=== PATIENT | male | born 1955 | race Asian ===

== ENCOUNTER 2016-05-22 13:42 | Emergency (ER) | payer OTHER ==
[~2016-05-22] VITALS: Ht 165.1 cm; Wt 91.2 kg
[~2016-05-22 13:42] MED LIST: ALLO100T PO; AMLO-147 PO; ASPI81TA3 PO; ATEN-51 PO; BACL10TA PO; BENA20TA48 PO; CIPR500T4 PO; DICY10CA60 PO; HYDR-762 PO; METR500T PO; ONDA4TAB35 PO; SIMV10TA PO
[2016-05-22 13:55] VITALS: Ht 165.1 cm; Wt 91.2 kg
--- NOTE | 2016-05-22 15:59 | RADRPT ---
PROCEDURE: XR Left Forearm. CLINICAL INDICATION: Trauma. Left forearm pain. TECHNIQUE: AP and lateral views of the left forearm were obtained. COMPARISON: No prior studies are available for comparison. FINDINGS: There is no fracture or dislocation. There is medial soft tissue injury. Articular surfaces are intact. There is no lytic or blastic lesion. There is no radiopaque foreign body. IMPRESSION: 1. Medial soft tissue injury. 2. Otherwise unremarkable images of the left forearm. RPTAT: QQ .Yoni Palumbo MD, MD Date Time Electronically viewed and signed by .Yoni Palumbo MD, on 05/22/2016 15:59 .R/
[2016-05-22] MEDS ORDERED: LIDOCAINE 1% (MDV) 20 ML INJ SC ONE (16:00)
[2016-05-22] MEDS ORDERED: LIDOCAINE 1%/EPI 30 ML INJ INJ STA (16:05)
[2016-05-22] MEDS ORDERED: HYDR-906 PO (16:39)
[2016-05-22] MEDS ORDERED: CEPH-443 PO (16:39)
[2016-05-22] MEDS ORDERED: DIPHTH/TET/ACEL PERTUSS (ADULT) 0.5 ML VIAL IM* ONE (17:00)
[2016-05-22 17:14] VITALS: BP 134/75; PULSE 78; RESP 19; TEMP 98.4
--- NOTE | 2016-05-23 17:09 | ERD ---
ER Documentation Chief Complaint Date/Time DATE: 05/23/16 TIME: 17:01 Chief Complaint rfa lac HPI 60 year old male presents to ER for right forearm laceration 1 hour prior to arrival. 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 When he went to case picker the sheetmetal trades worker it turned on and patient suffered a laceration to right forearm. Patient had moderate amount of bleeding prior to arrival. Laceration is deep. No visible bones. Patient unsure if he ever had tetanus vaccination. ROS All systems reviewed and are negative except as per history of present illness. Medications Home Meds Active Scripts Cephalexin* (Keflex*) 500 Mg Capsule, 500 MG PO QID for 5 Days, CAP Prov:IRVING OVIEDO NP 05/22/16 Hydrocodone/Acetaminophen ([place] 5-325 Tablet) 1 Each Tablet, 1 TAB PO Q6H Y for PAIN, #15 TAB Prov:IRVING OVIEDO NP 05/22/16 Metronidazole* (Flagyl*) 500 Mg Tablet, 500 MG PO BID for 7 Days, TAB Prov:ZI MONTEJO 03/01/15 Ciprofloxacin Hcl* (Ciprofloxacin Hcl*) 500 Mg Tablet, 500 MG PO BID, #14 TAB Prov:ZI MONTEJO 03/01/15 Dicyclomine Hcl* (Bentyl*) 10 Mg Capsule, 10 MG PO QID Y for abdominal cramping , #30 CAP Prov:BRIAN GILLESPIE MD 03/01/15 Hydrocodone Bit-Acetaminophen* ([place]*) 10-325 Mg Tablet, 1 TAB PO Q6 Y for PAIN , #12 TAB Prov:BRIAN GILLESPIE MD 03/01/15 Ondansetron Hcl* (Zofran* ODT) 4 mg -ODT Tab.disper, 4 MG PO Q6 Y for NAUSEA AND /OR VOMITING, #10 TAB Prov:BRIAN GILLESPIE MD 03/01/15 Reported Medications Atenolol* (Atenolol*) 25 Mg Tablet, 25 MG PO BID, TAB 03/01/15 Aspirin* (Aspirin* Chew) 81 Mg Tab.chew, 81 MG PO DAILY, TAB.CHEW 03/01/15 Amlodipine Besylate* (Amlodipine Besylate*) 10 Mg Tablet, 10 MG PO DAILY, #30 TAB 03/01/15 Benazepril Hcl* (Benazepril Hcl*) 20 Mg Tablet, 20 MG PO BID, #60 TAB 03/01/15 Allopurinol* (Allopurinol*) 100 Mg Tablet, 100 MG PO DAILY, TAB 03/01/15 Baclofen* (Baclofen*) 10 Mg Tablet, 10 MG PO DAILY Y for PAIN LEVEL 4-6, TAB 03/01/15 Simvastatin* (Zocor*) 10 Mg Tablet, 10 MG PO QHS, #30 TAB 03/01/15 Allergies Allergies: Coded Allergies: No Known Allergy (Unverified , 05/22/16) PMhx/Soc History of Surgery: No Anesthesia Reaction: No Hx Neurological Disorder: No Hx Respiratory Disorders: No Hx Cardiac Disorders: Yes (hypertension) Hx Miscellaneous Medical Probl: Yes (chronic back pain) Hx Alcohol Use: No Hx Substance Use: No Hx Tobacco Use: No Smoking Status: Never smoker Physical Exam Vitals Vital Signs Date Time Temp Pulse Resp B/P Pulse Ox O2 Delivery O2 Flow Rate FiO2 05/22/16 17:14 98.4 78 19 134/75 100 Room Air 05/22/16 13:55 98.1 84 20 151/84 99 Physical Exam Const: alert Head: Atraumatic Eyes: Normal Conjunctiva ENT: Normal External Ears, Nose and Mouth. Neck: Full range of motion..~ No meningismus. Resp: Clear to auscultation bilaterally Cardio: Regular rate and rhythm, no murmurs Abd: Soft, non tender, non distended. Normal bowel sounds Skin: No petechiae or rashes Back: No midline or flank tenderness Ext: large linear deep laceration to medial aspect of right forearm with large protrusion of tissue. 2nd smaller laceration distal to larger laceration. No visible bones. Patient is able to cross all his fingers on right side hand . Sensation fully intact. Neur: Awake and alert Psych: Normal Mood and Affect Results 24 hrs Current Medications Medications (Trade) Dose Ordered Sig/Kushal Route PRN Reason Start Time Stop Time Status Last Admin Dose Admin Lidocaine (Xylocaine 1% (Mdv) 20 ml) 20 ml ONCE ONCE SC 05/22/16 16:00 05/22/16 16:01 DC Lidocaine/ Epinephrine (Xylocaine 1%/ Epi) 30 ml ONCE STAT INJ 05/22/16 16:05 05/22/16 16:06 DC Diphtheria/ Tetanus/Acell Pertussis (Adacel) 0.5 ml ONCE ONCE IM* 05/22/16 17:00 05/22/16 17:01 DC 05/22/16 16:43 Procedures/MDM ED COURSE: The patient was stable throughout ED course. I kept the patient and/or family informed of laboratory and diagnostic imaging results throughout the ED course. Imaging X-ray left forearm Patient: AYAZ CHRISTENSEN : 1955 Age: 60 Sex: M MR #: [id number] DOS: 05/22/16 1526 Ordering MD: IRVING OVIEDO NP Location: [facility] Room/Bed: PROCEDURE: XR Left Forearm. CLINICAL INDICATION: Trauma. Left forearm pain. TECHNIQUE: AP and lateral views of the left forearm were obtained. COMPARISON: No prior studies are available for comparison. FINDINGS: There is no fracture or dislocation. There is medial soft tissue injury. Articular surfaces are intact. There is no lytic or blastic lesion. There is no radiopaque foreign body. IMPRESSION: 1. Medial soft tissue injury. 2. Otherwise unremarkable images of the left forearm. MDM: 60 year old male presents the ER for left forearm laceration that occurred today about 1 hour prior to arrival. Laceration repair described below. X-ray left forearm reviewed by radiologist as medial soft tissue injury otherwise unremarkable. Patient has full mobility to all 5 digits on left hand , left wrist and left forearm. Remains neurovascularly intact. No loss of sensation. Tdap given. Laceration Repair by me: Verbal consent obtained prior to laceration repair. Anesthesia: 1% lidocaine/epi locally Location: left forearm Tendon/Joint/Nerves: No injury Foreign body: None detected after copious irrigation and exploration Technique: 11 Simple Interrupted Sutures Complexity: No subcutaneous sutures/mucosal repair/ edge excision Post Closure Length: 2.5 inches, 1.5 inches Patient's bleeding was easily controlled in the department and there is no indication of anemia. No evidence of compartment syndrome, neurologic injury, vascular injury, open joint, tendon laceration, or foreign body. Patient is appropriate for outpatient follow up. 48 hour wound check. Scar minimization instructions given. Departure Diagnosis: Primary Impression: Laceration Condition: Stable Patient Instructions: Laceration, All Referrals: JOSIAH HERNANDEZ MD (PCP) Additional Instructions: Follow-up in 2 days for wound check. Return to ED for any high fever, chest pain, difficulty breathing, shortness breath, wheezing, vomiting, diarrhea, abdominal pain or any new or worsening symptoms. IRVING OVIEDO NP May 23, 2016 17:09
== END 2016-05-22 17:20 | disposition home or self-care (01) ==
LOC: FTE 13:42
DX: S51.811A Laceration without foreign body of right forearm, initial encounter (principal); I10 Essential (primary) hypertension; W29.8XXA Contact with other powered hand tools and household machinery, initial encounter; Y92.9 Unspecified place or not applicable; Z79.82 Long term (current) use of aspirin; Z23 Encounter for immunization
CPT/HCPCS: 73090; 90471; 90715

== ENCOUNTER 2016-05-24 12:30 | Emergency (ER) | payer OTHER ==
[~2016-05-24] VITALS: Ht 167.6 cm; Wt 76.5 kg
[~2016-05-24 12:30] MED LIST changes: +CEPH-443 PO; +HYDR-906 PO
[2016-05-24 12:46] VITALS: Ht 167.6 cm; Wt 76.5 kg
--- NOTE | 2016-05-24 14:48 | ERA ---
ER Documentation Chief Complaint Date/Time DATE: 05/24/16 TIME: 14:45 Chief Complaint WOUND CHECK ON LEFT ARM . HAD STICHES DONE ON TUESDAY HPI Patient is a 60-year-old male presents for wound check. Patient sustained a laceration to his left forearm on the anterior side 2 days ago while using a drilling 2. Patient's laceration is approximately 8-10 inches long. Patient denies any discharge, excessive swelling, or pain. Patient said he has not been taking the [place] due to dizziness as a side effect. Patient has been taking ibuprofen for discomfort at home. ROS All systems reviewed and are negative except as per history of present illness. Medications Home Meds Active Scripts Cephalexin* (Keflex*) 500 Mg Capsule, 500 MG PO QID for 5 Days, CAP Prov:IRVING OVIEDO NP 05/22/16 Hydrocodone/Acetaminophen ([place] 5-325 Tablet) 1 Each Tablet, 1 TAB PO Q6H Y for PAIN, #15 TAB Prov:IRVING OVIEDO NP 05/22/16 Metronidazole* (Flagyl*) 500 Mg Tablet, 500 MG PO BID for 7 Days, TAB Prov:ZI MONTEJO 03/01/15 Ciprofloxacin Hcl* (Ciprofloxacin Hcl*) 500 Mg Tablet, 500 MG PO BID, #14 TAB Prov:ZI MONTEJO 03/01/15 Dicyclomine Hcl* (Bentyl*) 10 Mg Capsule, 10 MG PO QID Y for abdominal cramping , #30 CAP Prov:BRIAN GILLESPIE MD 03/01/15 Hydrocodone Bit-Acetaminophen* ([place]*) 10-325 Mg Tablet, 1 TAB PO Q6 Y for PAIN , #12 TAB Prov:BRIAN GILLESPIE MD 03/01/15 Ondansetron Hcl* (Zofran* ODT) 4 mg -ODT Tab.disper, 4 MG PO Q6 Y for NAUSEA AND /OR VOMITING, #10 TAB Prov:BRIAN GILLESPIE MD 03/01/15 Reported Medications Atenolol* (Atenolol*) 25 Mg Tablet, 25 MG PO BID, TAB 03/01/15 Aspirin* (Aspirin* Chew) 81 Mg Tab.chew, 81 MG PO DAILY, TAB.CHEW 03/01/15 Amlodipine Besylate* (Amlodipine Besylate*) 10 Mg Tablet, 10 MG PO DAILY, #30 TAB 03/01/15 Benazepril Hcl* (Benazepril Hcl*) 20 Mg Tablet, 20 MG PO BID, #60 TAB 03/01/15 Allopurinol* (Allopurinol*) 100 Mg Tablet, 100 MG PO DAILY, TAB 03/01/15 Baclofen* (Baclofen*) 10 Mg Tablet, 10 MG PO DAILY Y for PAIN LEVEL 4-6, TAB 03/01/15 Simvastatin* (Zocor*) 10 Mg Tablet, 10 MG PO QHS, #30 TAB 03/01/15 Allergies Allergies: Coded Allergies: No Known Allergy (Unverified , 05/22/16) PMhx/Soc History of Surgery: No Anesthesia Reaction: No Hx Neurological Disorder: No Hx Respiratory Disorders: No Hx Cardiac Disorders: Yes (hypertension) Hx Miscellaneous Medical Probl: Yes (chronic back pain) Hx Alcohol Use: No Hx Substance Use: No Hx Tobacco Use: No Physical Exam Vitals Vital Signs Date Time Temp Pulse Resp B/P Pulse Ox O2 Delivery O2 Flow Rate FiO2 05/24/16 12:46 99.2 76 20 141/74 98 Physical Exam Const: Well-appearing 60-year-old male in no acute distress. Head: Atraumatic Eyes: Normal Conjunctiva ENT: Normal External Ears, Nose and Mouth. Neck: Full range of motion..~ No meningismus. Resp: Clear to auscultation bilaterally Cardio: Regular rate and rhythm, no murmurs Abd: Soft, non tender, non distended. Normal bowel sounds Skin: No petechiae or rashes Back: No midline or flank tenderness Ext: No cyanosis, or edema Neur: Awake and alert Psych: Normal Mood and Affect Procedures/MDM Patient is a well-appearing 60-year-old male presents for wound check is sustained 2 days ago to the left anterior forearm while using a drilling machine. Patient denies any symptoms or signs of infection. We will go ahead and discharge the patient with return precautions and follow-up in 7 days for suture removal. Departure Diagnosis: Primary Impression: Visit for wound check Additional Impression: Laceration Condition: Stable Patient Instructions: Wound Care Additional Instructions: Return to emergency department if signs of infection arise. LEN VOSS PA-C May 24, 2016 14:47
== END 2016-05-24 14:48 | disposition home or self-care (01) ==
LOC: E/R 12:30
DX: Z48.01 Encounter for change or removal of surgical wound dressing (principal); I10 Essential (primary) hypertension; Z79.82 Long term (current) use of aspirin
CPT/HCPCS: 99281

== ENCOUNTER 2016-05-31 11:07 | Emergency (ER) | payer OTHER ==
[~2016-05-31] VITALS: Ht 170.2 cm; Wt 80.0 kg
[2016-05-31 11:11] VITALS: Ht 170.2 cm; Wt 80.0 kg
--- NOTE | 2016-05-31 13:04 | ERD ---
ER Documentation Chief Complaint Date/Time DATE: 05/31/16 TIME: 13:02 Chief Complaint LFA SUTURE REMOVAL HPI This patient is a 60-year-old male with no significant medical history presenting to the emergency department for suture removal from his left upper extremity. Sutures were placed approximately 9 days ago. The patient denies fevers, discharge, chills, redness, pain, or other symptoms at this time. The patient was taking Keflex for infection prophylaxis. ROS All systems reviewed and are negative except as per history of present illness. Medications Home Meds Active Scripts Cephalexin* (Keflex*) 500 Mg Capsule, 500 MG PO QID for 5 Days, CAP Prov:IRVING OVIEDO NP 05/22/16 Hydrocodone/Acetaminophen ([place] 5-325 Tablet) 1 Each Tablet, 1 TAB PO Q6H Y for PAIN, #15 TAB Prov:IRVING OVIEDO NP 05/22/16 Metronidazole* (Flagyl*) 500 Mg Tablet, 500 MG PO BID for 7 Days, TAB Prov:ZI MONTEJO 03/01/15 Ciprofloxacin Hcl* (Ciprofloxacin Hcl*) 500 Mg Tablet, 500 MG PO BID, #14 TAB Prov:ZI MONTEJO 03/01/15 Dicyclomine Hcl* (Bentyl*) 10 Mg Capsule, 10 MG PO QID Y for abdominal cramping , #30 CAP Prov:BRIAN GILLESPIE MD 03/01/15 Hydrocodone Bit-Acetaminophen* ([place]*) 10-325 Mg Tablet, 1 TAB PO Q6 Y for PAIN , #12 TAB Prov:BRIAN GILLESPIE MD 03/01/15 Ondansetron Hcl* (Zofran* ODT) 4 mg -ODT Tab.disper, 4 MG PO Q6 Y for NAUSEA AND /OR VOMITING, #10 TAB Prov:BRIAN GILLESPIE MD 03/01/15 Reported Medications Atenolol* (Atenolol*) 25 Mg Tablet, 25 MG PO BID, TAB 03/01/15 Aspirin* (Aspirin* Chew) 81 Mg Tab.chew, 81 MG PO DAILY, TAB.CHEW 03/01/15 Amlodipine Besylate* (Amlodipine Besylate*) 10 Mg Tablet, 10 MG PO DAILY, #30 TAB 03/01/15 Benazepril Hcl* (Benazepril Hcl*) 20 Mg Tablet, 20 MG PO BID, #60 TAB 03/01/15 Allopurinol* (Allopurinol*) 100 Mg Tablet, 100 MG PO DAILY, TAB 03/01/15 Baclofen* (Baclofen*) 10 Mg Tablet, 10 MG PO DAILY Y for PAIN LEVEL 4-6, TAB 03/01/15 Simvastatin* (Zocor*) 10 Mg Tablet, 10 MG PO QHS, #30 TAB 03/01/15 Allergies Allergies: Coded Allergies: No Known Allergy (Unverified , 05/31/16) PMhx/Soc History of Surgery: No Anesthesia Reaction: No Hx Neurological Disorder: No Hx Respiratory Disorders: No Hx Cardiac Disorders: Yes (hypertension) Hx Miscellaneous Medical Probl: Yes (chronic back pain) Hx Alcohol Use: No Hx Substance Use: No Hx Tobacco Use: No Smoking Status: Never smoker FmHx Noncontributory for chief complaint Physical Exam Vitals Vital Signs Date Time Temp Pulse Resp B/P Pulse Ox O2 Delivery O2 Flow Rate FiO2 05/31/16 11:11 98.1 75 20 145/75 99 Physical Exam Const: The patient is resting comfortably in no acute distress. Head: Atraumatic Eyes: Normal Conjunctiva ENT: Normal External Ears, Nose and Mouth. Neck: Full range of motion..~ No meningismus. Resp: Clear to auscultation bilaterally Cardio: Regular rate and rhythm, no murmurs Abd: Soft, non tender, non distended. Normal bowel sounds Skin: Well-healing laceration wound to the left arm with sutures in place. There is no discharge, erythema, warmth, or induration. Back: No midline or flank tenderness Ext: No cyanosis, or edema Neur: Awake and alert Psych: Normal Mood and Affect Procedures/MDM Suture Removal by me: Sutures removed with tweezers and scissors without incident. Wound shows no evidence of infection, foreign body, neurologic injury, vascular injury, open joint or tendon laceration. Patient to follow up PRN. Departure Diagnosis: Primary Impression: Encounter for removal of sutures Condition: Fair Patient Instructions: Suture Removal, No Complication Referrals: (Family) COMMUNITY CLINICS YOU HAVE RECEIVED A MEDICAL SCREENING EXAM AND THE RESULTS INDICATE THAT YOU DO NOT HAVE A CONDITION THAT REQUIRES URGENT TREATMENT IN THE EMERGENCY DEPARTMENT. FURTHER EVALUATION AND TREATMENT OF YOUR CONDITION CAN WAIT UNTIL YOU ARE SEEN IN YOUR DOCTORS OFFICE WITHIN THE NEXT 1-2 DAYS. IT IS YOUR RESPONSIBILITY TO MAKE AN APPOINTMENT FOR FOLOW-UP CARE. IF YOU HAVE A PRIMARY DOCTOR --you should call your primary doctor and schedule an appointment IF YOU DO NOT HAVE A PRIMARY DOCTOR YOU CAN CALL OUR PHYSICIAN REFERRAL HOTLINE AT IF YOU CAN NOT AFFORD TO SEE A PHYSICIAN YOU CAN CHOSE FROM THE FOLLOWING [facility] [employer] [address] [facility] [address] [facility] [address] [facility] [address] [facility] [address] [facility]. [facility]. [address] Additional Instructions: Follow-up with your primary care physician within 1 week. Return to the emergency department immediately should you have any new or worsening symptoms, uncontrolled fevers, or other unexplained symptoms. Take all medications as directed. BO LAYNE PA-C May 31, 2016 13:04
== END 2016-05-31 12:40 | disposition home or self-care (01) ==
LOC: FTE 11:07
DX: Z48.02 Encounter for removal of sutures (principal); I10 Essential (primary) hypertension; Z79.82 Long term (current) use of aspirin
CPT/HCPCS: 99281

== ENCOUNTER 2018-04-07 09:59 | Emergency (ER) | payer OTHER ==
[~2018-04-07] VITALS: Ht 172.7 cm; Wt 75.0 kg
[~2018-04-07 09:59] MED LIST changes: +ASPI-903 PO; -ASPI81TA3 PO; +BENA20TA4 PO; -BENA20TA48 PO; +DICY10CA40 PO; -DICY10CA60 PO; +HYDR-4011 PO; -HYDR-906 PO
[2018-04-07 10:02] VITALS: Ht 172.7 cm; Wt 75.0 kg
--- NOTE | 2018-04-07 11:09 | ERD ---
ER Documentation Chief Complaint Chief Complaint pt bib family c/o cough , fever, pain with resp, starting 2 days ago HPI 62 male patient, with history of hypertension, presents to the emergency department with acute onset of high fever, runny nose, chest congestion, dry cough and general malaise that started 2 days ago. The patient has been receiving [id number] medications without improvement of the symptoms. Otherwise, no chest pain, no shortness of breath, no rashes, no diarrhea or constipation. ROS All systems reviewed and are negative except as per history of present illness. Medications Home Meds Active Scripts Cephalexin* (Keflex*) 500 Mg Capsule, 500 MG PO QID for 5 Days, CAP Prov:IRVING OVIEDO NP 05/22/16 Hydrocodone/Acetaminophen ([employer] 5-325 Tablet) 1 Each Tablet, 1 TAB PO Q6H PRN for PAIN, #15 TAB Prov:IRVING OVIEDO NP 05/22/16 Metronidazole* (Flagyl*) 500 Mg Tablet, 500 MG PO BID for 7 Days, TAB Prov:ZI MONTEJO 03/01/15 Ciprofloxacin Hcl* (Ciprofloxacin Hcl*) 500 Mg Tablet, 500 MG PO BID, #14 TAB Prov:ZI MONTEJO 03/01/15 Dicyclomine HCl (Dicyclomine HCl) 10 Mg Capsule, 10 MG PO QID PRN for abdominal cramping, #30 CAP Prov:BRIAN GILLESPIE MD 03/01/15 Hydrocodone Bit-Acetaminophen* ([employer]*) 10-325 Mg Tablet, 1 TAB PO Q6 PRN for PAIN, #12 TAB Prov:BRIAN GILLESPIE MD 03/01/15 Ondansetron Hcl* (Zofran* ODT) 4 mg -ODT Tab.disper, 4 MG PO Q6 PRN for NAUSEA AND/OR VOMITING, #10 TAB Prov:BRIAN GILLESPIE MD 03/01/15 Reported Medications Atenolol* (Atenolol*) 25 Mg Tablet, 25 MG PO BID, TAB 03/01/15 Aspirin* (Aspirin* Chew) 81 Mg Tab.chew, 81 MG PO DAILY, TAB.CHEW 03/01/15 Amlodipine Besylate* (Amlodipine Besylate*) 10 Mg Tablet, 10 MG PO DAILY, #30 TAB 03/01/15 Benazepril Hcl* (Benazepril Hcl*) 20 Mg Tablet, 20 MG PO BID, #60 TAB 03/01/15 Allopurinol* (Allopurinol*) 100 Mg Tablet, 100 MG PO DAILY, TAB 03/01/15 Baclofen* (Baclofen*) 10 Mg Tablet, 10 MG PO DAILY PRN for PAIN LEVEL 4-6, TAB 03/01/15 Simvastatin* (Zocor*) 10 Mg Tablet, 10 MG PO QHS, #30 TAB 03/01/15 Allergies Allergies: Coded Allergies: No Known Allergy (Unverified , 05/31/16) PMhx/Soc History of Surgery: No Anesthesia Reaction: No Hx Neurological Disorder: No Hx Respiratory Disorders: No Hx Cardiac Disorders: Yes (hypertension) Hx Miscellaneous Medical Probl: Yes (chronic back pain) Hx Alcohol Use: No Hx Substance Use: No Hx Tobacco Use: No FmHx Family History: No diabetes, No coronary disease Physical Exam Vitals Vital Signs Date Temp Pulse Resp B/P (MAP) Pulse Ox O2 O2 Flow FiO2 Time Delivery Rate 04/07/18 102.5 11:25 04/07/18 102.5 118 20 141/60 97 10:02 (87) Physical Exam Patient is in moderate distress due to cough and fever, vital signs showed fever. EYES: PERRLA, EOMI, injected sclerae EARS: Canals clear, erythematous tympanic membranes THROAT: Erythematous oropharynx. NECK: Supple, No lymphadenopathy. Full ROM without pain or tenderness. HEART: RRR, no rubs, murmurs, clicks or gallops. LUNGS: Bilateral rhonchi to auscultation. ABDOMEN: Soft, non-tender without masses or hepatosplenomegaly. EXTREMITIES: No edema bilaterally. BACK: Full ROM, no deformity, normal back exam NEURO: Cranial nerves grossly intact, no motor or sensory deficit Results 24 hrs Current Medications Medications Dose Sig/Kushal Start Time Status Last (Trade) Ordered Route PRN Stop Time Admin Dose Reason Admin Ketorolac 30 mg ONCE STAT 04/07/18 DC 04/07/18 Tromethamine IM 11:12 11:25 (Toradol) 04/07/18 11:16 650 mg ONCE ONCE 04/07/18 DC 04/07/18 Acetaminophen PO 11:30 11:25 (Tylenol 04/07/18 11:31 Tab) Procedures/MDM At the time of discharge, vital signs stable, no respiratory distress. Differential diagnosis include but not limited to: Respiratory infection bacterial/viral/fungal. Asthma/COPD, pneumonitis, allergies, GERD. Less likely foreign body aspiration, cardiac related, aspiration pneumonia, malignancy. Physical examination and clinical presentation consistent most likely with influenza. During the ED course the patient remained stable, fever resolved with medications given in the ER, no new complaints. Clinical impression discussed with patient who agrees with management. The patient is stable to be treated outpatient and will be discharged home with a Rx for antiviral medication and ibuprofen, antibiotics not indicated at this time. Some side effects of prescribed medications (headache, rash, nausea, vomiting, diarrhea, drowsiness, habituation, bleeding, hypertension, interactions with other medications) were reviewed. The patient was instructed to follow up with the primary care provider in the next 48h. If symptoms persist, worsen or new symptoms develop, then patient should return to the ED immediately. Disclaimer: Inadvertent spelling and grammatical errors are likely due to EHR/dictation software use and do not reflect on the overall quality of patient care. Also, please note that the electronic time recorded on this note does not necessarily reflect the actual time of the patient encounter. Departure Diagnosis: Primary Impression: Influenza-like symptoms Condition: Stable Additional Instructions: Muchas kenney por [facility] para vera servicio. Esperamos que en vera visita a la pilar de emergencia vera problema medico haya sido solucionado y que se sienta mucho mejor. Para estar seguros que vera mejoria sigue en proceso, le pedimos el favor de hacer alonzo wilbert de seguimiento medico con vera doctor primario en los proximos 2-4 mckenna. Lleve con usted estos documentos y las medicinas recetadas. Si cash sintomas empeoran, NO SE ESPERE, por favor regrese a pilar de emergencia INMEDIATAMENTE. En roger que usted no tenga un mdico de atencin primaria: Llame al mdico o clnica comunitaria de referencia que aparece abajo shayna las horas de consultorio para hacer alonzo wilbert para que le vean. CLINICAS: [facility] [phone] [address] [facility] [phone] [address] [facility] [phone] [facility] [phone] [address] [place] [phone] [address] [facility] [phone] CALIN PERALTA MD Apr 07, 2018 11:09
[2018-04-07] MEDS ORDERED: KETOROLAC 30 MG INJ IM STA (11:12)
[2018-04-07] MEDS ORDERED: ACETAMINOPHEN 325 MG TAB PO ONE (11:30)
[2018-04-07] MEDS ORDERED: ONDA4TAB8 PO (11:56)
[2018-04-07] MEDS ORDERED: IBUP-1542 PO (11:56)
[2018-04-07] MEDS ORDERED: ACET325T33 PO (11:56)
[2018-04-07] MEDS ORDERED: OSEL75CA23 PO (11:56)
[2018-04-07 12:27] VITALS: BP 138/89; PULSE 89; RESP 20
== END 2018-04-07 12:28 | disposition home or self-care (01) ==
LOC: FTE 09:59
DX: R05 Cough (principal); I10 Essential (primary) hypertension; R09.89 Other specified symptoms and signs involving the circulatory and respiratory systems; Z79.82 Long term (current) use of aspirin
CPT/HCPCS: 96372; J1885; Z7502; Z7610

== ENCOUNTER 2018-04-10 10:13 | Inpatient (IN) | payer OTHER ==
[~2018-04-10] VITALS: Ht 162.6 cm; Wt 77.9 kg
[2018-04-10] VITALS (13 sets, daily range): BP systolic 105–143; BP diastolic 59–81; PULSE 96–104; RESP 27–41; Ht 162.6 cm; Wt 77.9 kg
[~2018-04-10 10:13] MED LIST changes: +ACET325T33 PO; +IBUP-1542 PO; +ONDA4TAB8 PO; +OSEL75CA23 PO
[2018-04-10] MEDS ORDERED: CEFTRIAXONE 1 GM/50 ML (PMX) 50 ML IVPB STA (10:59)
[2018-04-10] MEDS ORDERED: SODIUM CHLORIDE 0.9% 1L BAG IV* STA (10:59)
[2018-04-10] MEDS ORDERED: AZITHROMYCIN 500MG/NS (PMX) 250 ML IV STA (10:59)
[2018-04-10] MEDS ORDERED: ONDANSETRON 4 MG INJ IV PRN (12:30)
[2018-04-10] MEDS ORDERED: ACETAMINOPHEN 325 MG TAB PO PRN ×2 (12:30→13:00)
[2018-04-10] MEDS ORDERED: NACL 0.9% 3 ML SYG IV SCH (13:00)
[2018-04-10] MEDS ORDERED: DOCUSATE SODIUM 100 MG CAP PO PRN (13:00)
[2018-04-10] MEDS ORDERED: FAMOTIDINE 20 MG TAB PO SCH (13:00)
[2018-04-10] MEDS ORDERED: ZOLPIDEM 5 MG TAB PO PRN (13:00)
--- NOTE | 2018-04-10 13:03 | ERD ---
ER Documentation Chief Complaint Chief Complaint Complains of generalized weakness and SOB x 2 days HPI Patient is a 62-year-old male with hypertension who presents feeling weak. He said the symptoms started on Tuesday. He had fevers as well as cough and shortness of breath. He denies urinary symptoms. He tried ibuprofen today. He was seen previously on April 07 diagnosed with flulike symptoms and discharge. He does not use home oxygen. He did not get a flu shot this year. Upon review of old medical records this is the patient's sixth visit to the ER since 2015. ROS All systems reviewed and are negative except as per history of present illness. Medications Home Meds Reported Medications Aspirin* (Aspirin* Chew) 81 Mg Tab.chew, 81 MG PO DAILY, TAB.CHEW 03/01/15 Amlodipine Besylate* (Amlodipine Besylate*) 10 Mg Tablet, 10 MG PO DAILY, #30 TAB 03/01/15 Benazepril Hcl* (Benazepril Hcl*) 20 Mg Tablet, 20 MG PO DAILY, #60 TAB 03/01/15 Allopurinol* (Allopurinol*) 100 Mg Tablet, 100 MG PO DAILY, TAB 03/01/15 Simvastatin* (Zocor*) 10 Mg Tablet, 10 MG PO QHS, #30 TAB 03/01/15 Discontinued Reported Medications Atenolol* (Atenolol*) 25 Mg Tablet, 25 MG PO BID, TAB 03/01/15 Baclofen* (Baclofen*) 10 Mg Tablet, 10 MG PO DAILY PRN for PAIN LEVEL 4-6, TAB 03/01/15 Discontinued Scripts Ibuprofen* (Motrin*) 600 Mg Tab, 600 MG PO Q8, #15 TAB Prov:CALIN PHAM MD 04/07/18 Ondansetron Hcl* (Zofran*) 4 Mg Tablet, 4 MG PO Q6H for NAUSEA AND/OR VOMITING, #12 TAB Prov:CALIN PHAM MD 04/07/18 Oseltamivir Phosphate* (Tamiflu*) 75 Mg Capsule, 75 MG PO BID for 5 Days, CAP Prov:CALIN PHAM MD 04/07/18 Acetaminophen* (Tylenol*) 325 Mg Tablet, 2 TAB PO Q6 PRN for PAIN AND OR ELEVATED TEMP, #20 TAB Prov:CALIN PHAM MD 04/07/18 Cephalexin* (Keflex*) 500 Mg Capsule, 500 MG PO QID for 5 Days, CAP Prov:IRVING OVIEDO NP 05/22/16 Hydrocodone/Acetaminophen (Rosine 5-325 Tablet) 1 Each Tablet, 1 TAB PO Q6H PRN for PAIN, #15 TAB Prov:IRVING OVIEDO NP 05/22/16 Metronidazole* (Flagyl*) 500 Mg Tablet, 500 MG PO BID for 7 Days, TAB Prov:ZI MONTEJO 03/01/15 Ciprofloxacin Hcl* (Ciprofloxacin Hcl*) 500 Mg Tablet, 500 MG PO BID, #14 TAB Prov:ZI MONTEJO 03/01/15 Dicyclomine HCl (Dicyclomine HCl) 10 Mg Capsule, 10 MG PO QID PRN for abdominal cramping, #30 CAP Prov:BRIAN GILLESPIE MD 03/01/15 Hydrocodone Bit-Acetaminophen* (Rosine*) 10-325 Mg Tablet, 1 TAB PO Q6 PRN for PAIN, #12 TAB Prov:BRIAN GILLESPIE MD 03/01/15 Ondansetron Hcl* (Zofran* ODT) 4 mg -ODT Tab.disper, 4 MG PO Q6 PRN for NAUSEA AND/OR VOMITING, #10 TAB Prov:BRIAN GILLESPIE MD 03/01/15 Allergies Allergies: Coded Allergies: No Known Allergy (Unverified , 05/31/16) PMhx/Soc History of Surgery: Yes (right wrist sx) Anesthesia Reaction: No Hx Neurological Disorder: No Hx Respiratory Disorders: No Hx Cardiac Disorders: Yes (hypertension, high cholesterol) Hx Psychiatric Problems: No Hx Miscellaneous Medical Probl: Yes (chronic back pain) Hx Alcohol Use: No Hx Substance Use: No Hx Tobacco Use: No Smoking Status: Former smoker FmHx Family History: diabetes Physical Exam Vitals Vital Signs Date Temp Pulse Resp B/P (MAP) Pulse Ox O2 O2 Flow FiO2 Time Delivery Rate 04/10/18 98.2 95 24 122/73 93 Mask 15.0 11:45 (89) 04/10/18 Nasal 4 10:55 Cannula 04/10/18 Nasal 4.0 10:55 Cannula 04/10/18 98.2 91 20 112/62 87 10:21 (79) Physical Exam Const: Moderate distress secondary to shortness of breath Head: Atraumatic Eyes: Normal Conjunctiva ENT: Normal External Ears, Nose and Mouth. Neck: Full range of motion. No meningismus. Resp: Decreased breath sounds bilaterally Cardio: Regular rate and rhythm, no murmurs Abd: Soft, non tender, non distended. Normal bowel sounds Skin: No petechiae or rashes Back: No midline or flank tenderness Ext: No cyanosis, or edema Neur: Awake and alert Psych: Normal Mood and Affect Result Diagram: 04/10/18 1102 04/10/18 1102 Results 24 hrs Laboratory Tests Test 04/10/18 11:00 04/10/18 11:02 POC Venous Lactate 2.3 mmol/L White Blood Count 35.8 10^3/ul Red Blood Count 4.72 10^6/ul Hemoglobin 14.1 g/dl Hematocrit 40.8 % Mean Corpuscular Volume 86.4 fl Mean Corpuscular Hemoglobin 29.9 pg Mean Corpuscular Hemoglobin Concent 34.6 g/dl Red Cell Distribution Width 14.3 % Platelet Count 257 10^3/UL Mean Platelet Volume 10.3 fl Immature Granulocytes % 8.100 % Neutrophils % % Segmented Neutrophils % (Manual) 37 % Band Neutrophils % (Manual) 52 % Lymphocytes % % Lymphocytes % (Manual) 2 % Reactive Lymphocytes % (Manual) 2 % Monocytes % % Monocytes % (Manual) 4 % Eosinophils % % Basophils % % Metamyelocytes % (manual) 3 % Myelocytes % (Manual) 1 % Nucleated Red Blood Cells % 0.2 /100WBC Immature Granulocytes # 2.910 10^3/ul Neutrophils # 10^3/ul Neutrophils # (Manual) 19.9 10^3/ul Band Neutrophils # 18.6 10^3/ul Lymphocytes (Manual) 0.7 10^3/ul Lymphocytes # 10^3/ul Reactive Lymphocytes # 0.7 10^3/ul Monocytes # 10^3/ul Monocytes # (Manual) 1.4 10^3/ul Eosinophils # 10^3/ul Basophils # 10^3/ul Metamyelocytes # 1.0 10^3/ul Myelocytes # 0.3 10^3/ul Nucleated Red Blood Cells # 10^3/ul Platelet Estimate NORMAL Polychromasia 1+ Poikilocytosis 1+ Anisocytosis 1+ Macrocytosis 1+ Prothrombin Time 13.3 Sec Prothrombin Time Ratio 1.0 INR International Normalized Ratio 1.00 Activated Partial Thromboplast Time 35.3 Sec Sodium Level 139 mmol/L Potassium Level 3.2 mmol/L Chloride Level 103 mmol/L Carbon Dioxide Level 21 mmol/L Anion Gap 15 Blood Urea Nitrogen 60 mg/dl Creatinine 3.02 mg/dl Est Glomerular Filtrat Rate mL/min 21 mL/min Glucose Level 135 mg/dl Calcium Level 8.9 mg/dl Total Bilirubin 2.5 mg/dl Direct Bilirubin 2.00 mg/dl Indirect Bilirubin 0.5 mg/dl Aspartate Amino Transf (AST/SGOT) 38 IU/L Alanine Aminotransferase (ALT/SGPT) 26 IU/L Alkaline Phosphatase 253 IU/L Troponin I < 0.012 ng/ml Total Protein 7.5 g/dl Albumin 3.5 g/dl Globulin 4.00 g/dl Albumin/Globulin Ratio 0.87 Current Medications Medications Dose Sig/Kushal Start Time Status Last (Trade) Ordered Route PRN Stop Time Admin Dose Reason Admin Sodium 2,550 ml BOLUS OVER 2 04/10/18 DC 04/10/18 Chloride HOURS STAT 10:59 11:10 (NS) IV* 04/10/18 11:01 Ceftriaxone 50 ml @ ONCE STAT 04/10/18 DC 04/10/18 Sodium 100 mls/hr IVPB 10:59 11:10 04/10/18 11:28 Azithromycin 250 ml @ ONCE STAT 04/10/18 DC 04/10/18 250 mls/hr IV 10:59 12:30 04/10/18 11:58 Ondansetron 4 mg ER BRIDGE 04/10/18 HCl (Zofran PRN IV 12:30 Inj) NAUSEA/VOMITI 04/11/18 12:29 NG 650 mg ER BRIDGE 04/10/18 Acetaminophen PRN PO 12:30 (Tylenol .MILD PAIN 04/11/18 12:29 Tab) 1-3 OR TEMP Procedures/MDM EKG read by me: Rate/Rhythm: Regular rate and rhythm at a rate of normal rate Intervals: Normal Impression: No evidence of ischemia or arrhythmia Chest X-ray 1V Interpreted by me: Soft Tissue: No acute abnormalities Bones: No acute abnormalities Mediastinum/Cardiac Silhouette/Lungs: Bilateral pneumonia Sepsis Documentation: Patient's infectious symptoms have not stabilized and the patient is at risk of rapid decompensation. The patient will be admitted for careful hydration, antibiotic therapy, and infectious source control. SEVERE SEPSIS CRITERIA: Infectious source: Pneumonia End organ damage indicated by: Lactic acid greater than 2 and acute respiratory failure SEPSIS MANAGEMENT Time of recognition of sepsis: 11:02 AM. Time of recognition of severe sepsis: 11:02 AM. Time of recognition of septic shock: No septic shock at this time. 3 HOUR BUNDLE Blood cultures x 2 before broad-spectrum antibiotics: Yes 30 ml/kg NS bolus was started but it was stopped because the patient became extremely short of breath with the fluids Initial lactate 2.3 Repeat lactate pending SEPTIC SHOCK ASSESSMENT: No lactic acid > 4.0 No persistent hypotension (SBP < 90 or 40 mmHg drop, MAP < 65) despite 30 mL/kg IV fluid bolus VOLUME REASSESSMENT FOR SEPTIC SHOCK: No septic shock at this time PERSISTENT HYPOTENSION TREATMENT: Comfort care no Central line not Required Vasopressor started not required I considered further perfusion assessment with CVP measurement, SCVO2, bedside ultrasound volume assessment, passive leg raise, trial of further fluid bolus. And proceeded with 30 ml/kg fluid bolus of NSS, broad spectrum antibiotics, and admission. The patient required BiPAP therapy for hypoxia and respiratory failure. Patient is unstable for transfer at this time and will be admitted to Dr. Marinelli from the renal team. CRITICAL CARE Critical care time 35 minutes Emergent fluid management while maintaining close respiratory support. Provision of immediate and broad-spectrum antibiotic therapy. Simultaneous assessment for possible sources in order to direct targeted therapy. Consideration for invasive and chemical support to prevent cardiopulmonary collapse. Critical care time is independent of procedures performed. Departure Diagnosis: Primary Impression: Respiratory failure Chronicity: acute Respiratory failure complication: hypoxia Qualified Codes: J96.01 - Acute respiratory failure with hypoxia Additional Impressions: PNA (pneumonia) Pneumonia type: due to unspecified organism Laterality: bilateral Lung location: unspecified part of lung Qualified Codes: J18.9 - Pneumonia, unspecified organism Acute weakness Severe sepsis Hypoxia Condition: Serious MAG TTIUS MD Apr 10, 2018 13:03
[2018-04-10] MEDS: FAMOTIDINE 20 MG TAB PO SCH (13:30)
--- NOTE | 2018-04-10 16:22 | CONS ---
Assessment/Plan Assessment/Plan Assessment/Plan (Daily) 1. acute vs acute on chronic renal failure due to ATN from sepsis 2. Sepsis due to CAP 3. acute hypoxic respiratory failure due to PNA 4. community acquired PNA 5. h/o HTN 6. ? h/o CKD 7. Severe metabolic acidosis due to sepsis and Renal failure Plan: seen in ICU< clinically pt is fluid overloaded, will give lasix 20mg IV x 1 dose now steele catheter if not placed Urine Na, Urine prot/cr ratio, urine Eosinophils, CK total, Uric acid Renal US has been ordered to assess for CKD, to rule out hydronephrosis IV abx for sepsis and PNA, renally dose all abx and monitor electrolytes ABG in AM Thanks for consultation, I will continue to follow up Consultation Date/Type/Reason Admit Date/Time Apr 10, 2018 at 12:26 Date of Consultation: Apr 10, 2018 Type of Consult NEPHROLOGY Reason for Consultation Acute vs acute on chronic renal failure, Fluid overload Requesting Provider: DAMARIS SPENCE MD Date/Time of Note DATE: 04/10/18 TIME: 16:21 Hx of Present Illness 62-year-old nonsmoker who presents with 3-day history of increasing shortness of breath, orthopnea, PND with progressive fever, chills and orthopnea, found to have significant dyspnea with extensive bilateral infiltrates and sepsis due to pneumonia, pt required BIPAP, pt was started on IV abx for PNA coverage. BUN/Cr on admission 60/3.02,K 3.2- No previous Baseline Cr available, Renal has been consulted for Acute vs acute on chronic renal failure, ECHO done today AM that showed EF 60% with stage I Diastolic dysfunction. Constitutional: no complaints Eyes: no complaints ENT: congestion Respiratory: cough, pleuritic pain, shortness of breath Cardiovascular: chest pain, lightheadedness, orthopenea Gastrointestinal: no complaints Genitourinary: no complaints Musculoskeletal: no complaints Skin: no complaints Neurologic: no complaints Endocrine: no complaints Lymphatic: no complaints Psychological: no complaints Immunologic: no complaints Past Medical History Medical History: high cholesterol, hypertension, renal disease Home Meds Reported Medications Aspirin* (Aspirin* Chew) 81 Mg Tab.chew, 81 MG PO DAILY, TAB.CHEW 03/01/15 Amlodipine Besylate* (Amlodipine Besylate*) 10 Mg Tablet, 10 MG PO DAILY, #30 TAB 03/01/15 Benazepril Hcl* (Benazepril Hcl*) 20 Mg Tablet, 20 MG PO DAILY, #60 TAB 03/01/15 Allopurinol* (Allopurinol*) 100 Mg Tablet, 100 MG PO DAILY, TAB 03/01/15 Simvastatin* (Zocor*) 10 Mg Tablet, 10 MG PO QHS, #30 TAB 03/01/15 Discontinued Reported Medications Atenolol* (Atenolol*) 25 Mg Tablet, 25 MG PO BID, TAB 03/01/15 Baclofen* (Baclofen*) 10 Mg Tablet, 10 MG PO DAILY PRN for PAIN LEVEL 4-6, TAB 03/01/15 Discontinued Scripts Ibuprofen* (Motrin*) 600 Mg Tab, 600 MG PO Q8, #15 TAB Prov:CALIN PHAM MD 04/07/18 Ondansetron Hcl* (Zofran*) 4 Mg Tablet, 4 MG PO Q6H for NAUSEA AND/OR VOMITING, #12 TAB Prov:CALIN PHAM MD 04/07/18 Oseltamivir Phosphate* (Tamiflu*) 75 Mg Capsule, 75 MG PO BID for 5 Days, CAP Prov:CALIN PHAM MD 04/07/18 Acetaminophen* (Tylenol*) 325 Mg Tablet, 2 TAB PO Q6 PRN for PAIN AND OR ELEVATED TEMP, #20 TAB Prov:CALIN PHAM MD 04/07/18 Cephalexin* (Keflex*) 500 Mg Capsule, 500 MG PO QID for 5 Days, CAP Prov:IRVING OVIEDO NP 05/22/16 Hydrocodone/Acetaminophen ([place] 5-325 Tablet) 1 Each Tablet, 1 TAB PO Q6H PRN for PAIN, #15 TAB Prov:IRVING OVIEDO NP 05/22/16 Metronidazole* (Flagyl*) 500 Mg Tablet, 500 MG PO BID for 7 Days, TAB Prov:ZI MONTEJO 03/01/15 Ciprofloxacin Hcl* (Ciprofloxacin Hcl*) 500 Mg Tablet, 500 MG PO BID, #14 TAB Prov:ZI MONTEJO 03/01/15 Dicyclomine HCl (Dicyclomine HCl) 10 Mg Capsule, 10 MG PO QID PRN for abdominal cramping, #30 CAP Prov:BRIAN GILLESPIE MD 03/01/15 Hydrocodone Bit-Acetaminophen* ([place]*) 10-325 Mg Tablet, 1 TAB PO Q6 PRN for PAIN, #12 TAB Prov:BRIAN GILLESPIE MD 03/01/15 Ondansetron Hcl* (Zofran* ODT) 4 mg -ODT Tab.disper, 4 MG PO Q6 PRN for NAUSEA AND/OR VOMITING, #10 TAB Prov:BRIAN GILLESPIE MD 03/01/15 Medications Current Medications Ondansetron HCl (Zofran Inj) 4 mg ER BRIDGE PRN IV NAUSEA/VOMITING; Start 04/10/18 at 12:30; Stop 04/11/18 at 12:29 Acetaminophen (Tylenol Tab) 650 mg ER BRIDGE PRN PO .MILD PAIN 1-3 OR TEMP; Start 04/10/18 at 12:30; Stop 04/11/18 at 12:29 IV Flush (NS 3 ml) 3 ml PER PROTOCOL IV ; Start 04/10/18 at 13:00 Acetaminophen (Tylenol Tab) 650 mg Q6H PRN PO .PAIN 1-3 OR TEMP; Start 04/10/18 at 13:00 Zolpidem Tartrate (Ambien) 5 mg QHS PRN PO .INSOMNIA; Start 04/10/18 at 13:00 Docusate Sodium (Colace) 100 mg Q12H PRN PO .CONSTIPATION; Start 04/10/18 at 13:00 Ceftriaxone Sodium 50 ml @ 100 mls/hr DAILY ONCE IVPB ; Start 04/11/18 at 09:00; Stop 04/11/18 at 09:29 Azithromycin 250 ml @ 250 mls/hr DAILY ONCE IVPB ; Start 04/11/18 at 09:00; Stop 04/11/18 at 09:59 Famotidine (Pepcid) 20 mg Q24H PO ; Start 04/10/18 at 13:30 Aspirin (Aspirin) 81 mg DAILY PO ; Start 04/11/18 at 09:00 Allergies: Coded Allergies: No Known Allergy (Unverified , 05/31/16) Past Surgical History Past Surgical Hx: other (head and Jaw surgery ) Family History Significant Family History: no pertinent family hx Social History Alcohol Use: none Smoking Status: Former smoker Drug Use: none Exam/Review of Systems Exam Vitals Vital Signs Date Temp Pulse Resp B/P (MAP) Pulse Ox O2 O2 Flow FiO2 Time Delivery Rate 04/10/18 98.4 101 26 111/75 98 BIPAP 15:45 (87) 04/10/18 15.0 11:45 Constitutional: distress Head: normocephalic Eyes: nl conjunctiva ENMT: nl external ears & nose Neck: supple, jvd Respiratory: clear to auscultation, crackles/rales, diminished breath sounds Cardiovascular: regular rate and rhythm, nl pulses Gastrointestinal: soft, non-tender Musculoskeletal: nl extremities to inspection, swelling Extremities: normal pulses Neurological: ATM MANAGER II-XII intact, nl mental status, nl speech, nl strength Skin: nl turgor Lymph: nl lymph nodes Results Result Diagram: 04/10/18 1102 04/10/18 1102 Results 24hrs Laboratory Tests Test 04/10/18 11:00 04/10/18 11:02 04/10/18 13:05 04/10/18 15:03 POC Venous 2.3 *H 2.3 *H Lactate White Blood Count 35.8 #H Red Blood Count 4.72 Hemoglobin 14.1 Hematocrit 40.8 L Mean Corpuscular 86.4 Volume Mean Corpuscular 29.9 Hemoglobin Mean Corpuscular 34.6 Hemoglobin Concen t Red Cell 14.3 Distribution Width Platelet Count 257 Mean Platelet 10.3 Volume Immature 8.100 H Granulocytes % Neutrophils % Segmented 37 L Neutrophils % (Manual) Band Neutrophils 52 H % (Manual) Lymphocytes % Lymphocytes % 2 L (Manual) Reactive 2 H Lymphocytes % (Manual) Monocytes % Monocytes % 4 (Manual) Eosinophils % Basophils % Metamyelocytes % 3 H (manual) Myelocytes % 1 H (Manual) Nucleated Red 0.2 H Blood Cells % Immature 2.910 H Granulocytes # Neutrophils # Neutrophils # 19.9 H (Manual) Band Neutrophils 18.6 H # Lymphocytes 0.7 L (Manual) Lymphocytes # Reactive 0.7 H Lymphocytes # Monocytes # Monocytes # 1.4 H (Manual) Eosinophils # Basophils # Metamyelocytes # 1.0 H Myelocytes # 0.3 H Nucleated Red Blood Cells # Platelet Estimate NORMAL Polychromasia 1+ Poikilocytosis 1+ Anisocytosis 1+ Macrocytosis 1+ Prothrombin Time 13.3 Prothrombin Time 1.0 Ratio INR International 1.00 Normalized Ratio Activated 35.3 H Partial Thrombopl ast Time Sodium Level 139 Potassium Level 3.2 L Chloride Level 103 Carbon Dioxide 21 Level Anion Gap 15 H Blood Urea 60 H Nitrogen Creatinine 3.02 H Est Glomerular 21 L Filtrat Rate mL/min Glucose Level 135 Calcium Level 8.9 Total Bilirubin 2.5 H Direct Bilirubin 2.00 H Indirect 0.5 Bilirubin Aspartate Amino 38 Transf (AST/SGOT) Alanine 26 Aminotransferase (ALT/SGPT) Alkaline 253 H Phosphatase Troponin I < 0.012 Total Protein 7.5 Albumin 3.5 Globulin 4.00 H Albumin/Globulin 0.87 Ratio Urine Color TIARA Urine Clarity CLEAR Urine pH 5.0 Urine Specific 1.012 [place]rill Urine Ketones NEGATIVE Urine Nitrite NEGATIVE Urine Bilirubin NEGATIVE Urine 2+ H Urobilinogen Urine Leukocyte NEGATIVE Esterase Urine Microscopic 3 RBC Urine Microscopic 5 WBC Urine FEW A Transitional Epithelial Cells Urine Hemoglobin 1+ H Urine Glucose NEGATIVE Urine Total 1+ H Protein Test 04/10/18 15:25 04/10/18 16:00 Lactic Acid Level 3.0 *H Blood Gas Blood arterial Specimen Source Arterial Blood 04/10/2018 12:29: Date Drawn 40 PM Arterial Blood pH 7.393 (Temp corrected) Arterial Blood 28.2 L pCO2 (Temp correct) Arterial Blood 97.6 pO2 (Temp corrected) Arterial Blood 16.8 L HCO3 Arterial Blood -6.6 L Base Excess Arterial Blood 96.9 Oxygen Saturation Prabhu Test ACCEPTAB Arterial Blood Right Radial Gas Puncture Site Arterial 0.3 Blood Carboxyhemo globin Arterial Blood 0.2 Methemoglobin Blood Gas A-a O2 587.2 H Differential Oxyhemoglobin 96.4 Percent Blood Gas 37.0 Temperature Blood Gas 16.0 Respiration Rate Blood Gas Actual 33 Respiration Rate Blood Gas MASK - BIPAP Modality FiO2 100.0 Blood Gas 10 Pressure Support Blood Gas 15/ IPAP/EPAP Ratio Blood Gas TM Notified Whom Blood Gas 04/10/2018 12:36: Notified Time 23 PM Medications Medication Current Medications Ondansetron HCl (Zofran Inj) 4 mg ER BRIDGE PRN IV NAUSEA/VOMITING; Start 04/10/18 at 12:30; Stop 04/11/18 at 12:29 Acetaminophen (Tylenol Tab) 650 mg ER BRIDGE PRN PO .MILD PAIN 1-3 OR TEMP; Start 04/10/18 at 12:30; Stop 04/11/18 at 12:29 IV Flush (NS 3 ml) 3 ml PER PROTOCOL IV ; Start 04/10/18 at 13:00 Acetaminophen (Tylenol Tab) 650 mg Q6H PRN PO .PAIN 1-3 OR TEMP; Start 04/10/18 at 13:00 Zolpidem Tartrate (Ambien) 5 mg QHS PRN PO .INSOMNIA; Start 04/10/18 at 13:00 Docusate Sodium (Colace) 100 mg Q12H PRN PO .CONSTIPATION; Start 04/10/18 at 13:00 Ceftriaxone Sodium 50 ml @ 100 mls/hr DAILY ONCE IVPB ; Start 04/11/18 at 09:00; Stop 04/11/18 at 09:29 Azithromycin 250 ml @ 250 mls/hr DAILY ONCE IVPB ; Start 04/11/18 at 09:00; Stop 04/11/18 at 09:59 Famotidine (Pepcid) 20 mg Q24H PO ; Start 04/10/18 at 13:30 Aspirin (Aspirin) 81 mg DAILY PO ; Start 04/11/18 at 09:00 MIRTA CANAS MD Apr 10, 2018 16:22
--- NOTE | 2018-04-10 16:55 | RADRPT ---
Echocardiogram Report Patient Name: Lucero CHRISTENSENtient ID: [id number] : [id number] (62y 4m)Study Date: 04/10/2018 1:28:45 PM Gender: MAccession #: [id number] Tech: AlexEra Sanderson [facility] Location: [facility] Ref.Physician: DAMARIS SPENCE Height(Cm): BSA: Weight(Kg): Quality: AdequateAccount #: Procedures: Echocardiographic Report: Transthoracic echocardiogram with complete 2D, M-Mode, and doppler examination. Indications: Evaluate Left Ventricular function. Measurements: 2D/M Mode Doppler Measurement Value Normal Range Measurement Value Normal Range LVIDd 2D 4.7 [ 4.2 - 5.8 ] cm AV Peak Live 1.6 [ 100.0 - 170.0 ] cm/sec LVIDs 2D 3.2 [ 2.5 - 4.0 ] cm AV Peak PG 10.0 [ 2.0 - 9.0 ] mmHg LVPWd 2D 1.0 [ 0.6 - 1.0 ] cm LVOT Peak Live 1.2 [ 70.0 - 110.0 ] cm/sec IVSd 2D 1.0 [ 0.6 - 1.0 ] cm LVOT Peak PG 6.0 [ 2.0 - 6.0 ] mmHg IVS/LVPW 2D 1.0 ratio MV E Peak Live 0.9 [ 60.0 - 130.0 ] cm/sec AoR Diam 2D 3.1 [ 2.6 - 3.4 ] cm MV A Peak Live 1.1 [ 100.0 - 120.0 ] cm/sec LA/Ao 2D 1 ratio MV E/A 0.8 [ 0.8 - 1.5 ] ratio LA Dimen 2D 3.3 [ 3.0 - 4.0 ] cm MV Decel Time 180 [ 104 - 258 ] msec Lat E` Live 0.1 [ 10.0 - 15.0 ] cm/sec MV E/A 0.8 [ 0.8 - 1.5 ] ratio Findings: Left Ventricle: Normal left ventricular systolic function. Normal left ventricular cavity size. Normal left ventricular wall thickness. Ejection fraction is visually estimated at 60 %. Tissue Doppler/Mitral Doppler indices are consistent with impaired relaxation (Stage I diastolic dysfunction). Right Ventricle: Normal right ventricular size. Normal right ventricular systolic function. Left Atrium: The left atrium is normal in size. Right Atrium: The right atrium is normal in size. Mitral Valve: Normal appearance and function of the mitral valve with trace physiologic regurgitation. Aortic Valve: No significant aortic stenosis or insufficiency. Aortic cusps appear mildly calcified. Tricuspid Valve: Normal appearance and function of the tricuspid valve with trace physiologic regurgitation. Pulmonic Valve: Normal pulmonic valve appearance. Pericardium: Normal pericardium with no significant pericardial effusion. Aorta: Normal aortic root. IVC: Normal size and normal respiratory collapse consistent with normal right atrial pressure. Conclusions: Normal left ventricular systolic function. Normal left ventricular cavity size. Normal left ventricular wall thickness. Ejection fraction is visually estimated at 60 %. Tissue Doppler/Mitral Doppler indices are consistent with impaired relaxation (Stage I diastolic dysfunction). Normal right ventricular size. Normal right ventricular systolic function. The left atrium is normal in size. The right atrium is normal in size. No significant valvular stenosis or regurgitation seen. Normal pericardium with no significant pericardial effusion. Electronically Signed By: Rudy Bueno 2018-04-10 16:54:04 PST
--- NOTE | 2018-04-10 18:23 | HP ---
DATE OF ADMISSION: 04/10/2018 CHIEF COMPLAINT: Shortness of breath. HISTORY OF PRESENT ILLNESS: A 62-year-old male with hypertension and hyperlipidemia presents to [facility] room with complaint of shortness of breath x2 days associated with weakness. The patient also reports occasional cough. He denies any chest pains. No subjective fevers or chills. No nausea or vomiting. Initial evaluation in the emergency room revealed white blood cell count of 35,000. Chest x-ray show s bilateral opacities in the left lower lobe and right middle lobe. The patient was hypoxic and requ ires BiPAP. PAST MEDICAL HISTORY: 1. Hypertension. 2. Hyperlipidemia. 3. Renal insufficiency. SOCIAL HISTORY: The patient lives at home. He denies tobacco or alcohol use. PHYSICAL EXAMINATION: GENERAL: Well-developed, well-nourished male who is in mild to moderate respiratory distress. VITAL SIGNS: Stable. He is afebrile. HEENT: Extraocular muscles are intact. Pupils are equal and reactive to light bilaterally. Sclerae are anicteric. Oropharynx is clear and moist. NECK: Supple. No JVD, no carotid bruits. LUNGS: Bilateral rhonchi and rales. CARDIAC: Regular rate and rhythm. No murmurs or gallops. ABDOMEN: Soft, nontender, nondistended. Normoactive bowel sounds. EXTREMITIES: Mild edema. NEUROLOGICAL: Grossly nonfocal. ASSESSMENT: 1. A 62-year-old male with community-acquired bilateral pneumonia. 2. Acute hypoxemic respiratory failure. 3. Rule out congestive heart failure. 4. Hypertension. 5. Hyperlipidemia. 6. Acute versus chronic kidney disease. BUN and creatinine were 16 and 3. PLAN: 1. Admit to telemetry. IV Rocephin and Zithromax. Respiratory treatment. 2. Pulmonary and nephrology consultations were requested. Dictated By: DAMARIS CHENG/PORFIRIO Conf#: [id number] DID#: [id number]
--- NOTE | 2018-04-10 19:09 | CONS ---
DATE OF ADMISSION: 04/10/2018 DATE OF CONSULTATION: TYPE OF CONSULTATION: Pulmonary. REASON FOR CONSULTATION: Shortness of breath. Thank you, Dr. Marinelli, for this consultation. HISTORY OF PRESENT ILLNESS: This is a 62-year-old nonsmoker who presents with 3-day history of incre asing shortness of breath, orthopnea, PND with progressive fever, chills and orthopnea, found to have significant dyspnea with extensive bilateral infiltrates and evidence of renal failure on his lab wo rk. PAST MEDICAL HISTORY: Hypertension, hyperlipidemia. SOCIAL HISTORY: He is a nonsmoker, no alcohol, no history of drug use. FAMILY HISTORY: Noncontributory. SYSTEMS REVIEW: A 12-point review of systems was negative other than mentioned above. PHYSICAL EXAMINATION: GENERAL: Elderly-appearing gentleman on noninvasive positive pressure ventilation. VITAL SIGNS: Currently afebrile, pulse is 100, blood pressure 109/71, O2 saturation 96%, FiO2 of 60% . NECK: Supple. No JVD or lymphadenopathy. CARDIAC: S1, S2. No added sounds or murmurs. CHEST: Diminished air entry bilaterally. ABDOMEN: Soft, nontender. No guarding or rebound. EXTREMITIES: No cyanosis, clubbing, edema. NEUROLOGIC: Generalized weakness, but no focal deficits. LABORATORIES: White count is 35.8, hemoglobin 14.1, platelets of 257. BUN 60, creatinine 3.02. Lac tic acid 2.3. INR was 1. Urinalysis: Negative for urinary tract infection. DIAGNOSTIC STUDIES: Chest x-ray shows bilateral infiltrates. IMPRESSION AND PLAN: 1. Acute hypoxemic respiratory failure likely secondary to community-acquired pneumonia. 2. Possible acute renal failure with mild metabolic acidosis. 3. History of essential hypertension. 4. Remote tobacco history. The patient will need: 1. Broad spectrum antibiotic coverage for community-acquired pneumonia. 2. I would consider empiric Tamiflu for influenza. 3. Volume resuscitation. 4. Renal ultrasound. 5. Renal consult with renal electrolytes. 6. Admission to ICU for severe respiratory distress, possibly requiring intubation and mechanical ve ntilation. Dictated By: CONNIE DE LA CRUZ MD SV/NTS Conf#: [id number] DID#: [id number] CC: DAMARIS MARINELLI MD;*EndCC*
[2018-04-10] MEDS ORDERED: FUROSEMIDE 20 MG INJ IV ONE (21:00)
[2018-04-10] MEDS: METOPROLOL 50 MG TAB PO SCH (21:00)
[2018-04-11] VITALS (24 sets, daily range): BP systolic 90–158; BP diastolic 53–87; PULSE 76–94; RESP 22–37
[2018-04-11] MEDS: ASPIRIN 81 MG TAB PO SCH (08:36)
[2018-04-11] MEDS: METOPROLOL 50 MG TAB PO SCH ×2 (08:36→20:40)
--- NOTE | 2018-04-11 08:46 | CONS ---
Assessment/Plan Assessment/Plan Assessment/Plan (Daily) 1. acute vs acute on chronic renal failure due to ATN from sepsis 2. Sepsis due to CAP 3. acute hypoxic respiratory failure due to PNA 4. community acquired PNA 5. h/o HTN 6. ? h/o CKD 7. Severe metabolic acidosis due to sepsis and Renal failure 8. Hyperuricemia with uric acid 10 9. Leucocytosis with WBC 47.8 Plan: s/p lasix 20mg IV x 1 dose yesterday, will start pt on IV lasix 20mg BID Uric acid 10- will start allopurinol 100mg po daily Renal US unremarkable IV abx for sepsis and PNA, renally dose all abx and monitor electrolytes, WBC 47 ok to downgrade will follow up Consultation Date/Type/Reason Admit Date/Time Apr 10, 2018 at 12:26 Initial Consult Date 04/10/18 Type of Consult NEPHROLOGY Requesting Provider: DAMARIS SPENCE MD Date/Time of Note DATE: 04/11/18 TIME: 08:46 24 HR Interval Summary Free Text/Dictation BUN/Cr slightly improved to 55/2.65, BP stable,afebrile, no chest pain Exam/Review of Systems Exam Vitals Vital Signs Date Temp Pulse Resp B/P (MAP) Pulse Ox O2 O2 Flow FiO2 Time Delivery Rate 04/11/18 80 33 119/74 95 BIPAP 06:00 (89) 04/11/18 50 05:05 04/11/18 98.8 04:00 04/10/18 15.0 11:45 Intake and Output 04/10/18 04/10/18 04/11/18 1515:00 23:00 07:00 OutputOutput Total 1150 ml 1000 ml BalanceBalance -1150 ml -1000 ml Exam Constitutional: distress Respiratory: clear to auscultation, crackles/rales, diminished breath sounds Cardiovascular: regular rate and rhythm, nl pulses Gastrointestinal: soft, non-tender Musculoskeletal: nl extremities to inspection, swelling Extremities: normal pulses Neurological: BUILDINGS [employer] II-XII intact, nl mental status, nl speech, nl strength Results Result Diagram: 04/11/18 04504/11/18 045 Results 24hrs Laboratory Tests Test 04/10/18 11:00 04/10/18 11:02 04/10/18 13:05 04/10/18 15:03 POC Venous 2.3 *H 2.3 *H Lactate White Blood 35.8 #H Count Red Blood Count 4.72 Hemoglobin 14.1 Hematocrit 40.8 L Mean Corpuscular 86.4 Volume Mean Corpuscular 29.9 Hemoglobin Mean Corpuscular 34.6 Hemoglobin Lianet nt Red Cell 14.3 Distribution Width Platelet Count 257 Mean Platelet 10.3 Volume Immature 8.100 H Granulocytes % Neutrophils % Segmented 37 L Neutrophils % (Manual) Band Neutrophils 52 H % (Manual) Lymphocytes % Lymphocytes % 2 L (Manual) Reactive 2 H Lymphocytes % (Manual) Monocytes % Monocytes % 4 (Manual) Eosinophils % Basophils % Metamyelocytes % 3 H (manual) Myelocytes % 1 H (Manual) Nucleated Red 0.2 H Blood Cells % Immature 2.910 H Granulocytes # Neutrophils # Neutrophils # 19.9 H (Manual) Band Neutrophils 18.6 H # Lymphocytes 0.7 L (Manual) Lymphocytes # Reactive 0.7 H Lymphocytes # Monocytes # Monocytes # 1.4 H (Manual) Eosinophils # Basophils # Metamyelocytes # 1.0 H Myelocytes # 0.3 H Nucleated Red Blood Cells # Platelet NORMAL Estimate Polychromasia 1+ Poikilocytosis 1+ Anisocytosis 1+ Macrocytosis 1+ Prothrombin Time 13.3 Prothrombin Time 1.0 Ratio INR 1.00 International Normalized Ratio Activated 35.3 H Partial Thrombop last Time Sodium Level 139 Potassium Level 3.2 L Chloride Level 103 Carbon Dioxide 21 Level Anion Gap 15 H Blood Urea 60 H Nitrogen Creatinine 3.02 H Est Glomerular 21 L Filtrat Rate mL/min Glucose Level 135 Calcium Level 8.9 Total Bilirubin 2.5 H Direct Bilirubin 2.00 H Indirect 0.5 Bilirubin Aspartate Amino 38 Transf (AST/SGOT ) Alanine 26 Aminotransferase (ALT/SGPT) Alkaline 253 H Phosphatase Troponin I < 0.012 Total Protein 7.5 Albumin 3.5 Globulin 4.00 H Albumin/Globulin 0.87 Ratio Urine Color TIARA Urine Clarity CLEAR Urine pH 5.0 Urine Specific 1.012 [place] Urine Ketones NEGATIVE Urine Nitrite NEGATIVE Urine Bilirubin NEGATIVE Urine 2+ H Urobilinogen Urine Leukocyte NEGATIVE Esterase Urine 3 Microscopic RBC Urine 5 Microscopic WBC Urine FEW A Transitional Epithelial Cells Urine 0.0 Eosinophils % Urine Hemoglobin 1+ H Urine Random 85.79 Creatinine Urine Random 32 Sodium Urine 0.78 Protein/Creatini ne Ratio Urine Glucose NEGATIVE Urine Total 67.0 H Protein Test 04/10/18 15:25 04/10/18 16:00 04/11/18 04:51 04/11/18 07:00 Lactic Acid 3.0 *H Level Blood Gas Blood arterial Blood arterial Specimen Source Arterial Blood 04/10/2018 12:29 04/11/2018 7:15: Date Drawn :40 PM 18 AM Arterial Blood 7.393 7.462 H pH (Temp corrected) Arterial Blood 28.2 L 30.8 L pCO2 (Temp correct) Arterial Blood 97.6 72.7 L pO2 (Temp corrected) Arterial Blood 16.8 L 21.5 L HCO3 Arterial Blood -6.6 L -1.3 Base Excess Arterial Blood 96.9 93.8 L Oxygen Saturatio n Prabhu Test ACCEPTAB N/A Arterial Blood Right Radial Right Brachial Gas Puncture Site Arterial 0.3 0.2 Blood Carboxyhem oglobin Arterial Blood 0.2 0.1 Methemoglobin Blood Gas A-a O2 587.2 H 249.2 H Differential Oxyhemoglobin 96.4 93.5 Percent Blood Gas 37.0 37.0 Temperature Blood Gas 16.0 14.0 Respiration Rate Blood Gas Actual 33 31 Respiration Rate Blood Gas MASK - BIPAP MASK - BIPAP Modality FiO2 100.0 50.0 Blood Gas 10 10 Pressure Support Blood Gas 15 15 IPAP/EPAP Ratio Blood Gas TM TM Notified Whom Blood Gas 04/10/2018 12:36 04/11/2018 7:52: Notified Time :23 PM 01 AM White Blood 47.8 #H Count Red Blood Count 4.28 L Hemoglobin 12.8 L Hematocrit 36.4 L Mean Corpuscular 85.0 Volume Mean Corpuscular 29.9 Hemoglobin Mean Corpuscular 35.2 Hemoglobin Lianet nt Red Cell 13.9 Distribution Width Platelet Count 238 Mean Platelet 10.6 H Volume Immature 6.900 H Granulocytes % Neutrophils % Lymphocytes % Monocytes % Eosinophils % Basophils % Nucleated Red 0.1 H Blood Cells % Immature 3.310 H Granulocytes # Neutrophils # Lymphocytes # Monocytes # Eosinophils # Basophils # Nucleated Red Blood Cells # Sodium Level 144 Potassium Level 3.1 L Chloride Level 106 Carbon Dioxide 22 Level Anion Gap 16 H Blood Urea 55 H Nitrogen Creatinine 2.65 H Est Glomerular 25 L Filtrat Rate mL/min Glucose Level 125 Hemoglobin A1c 6.1 H Uric Acid 10.0 H Calcium Level 8.6 Creatine Kinase 23 B-Type 1440 H Natriuretic Peptide Medications Medication Current Medications Ondansetron HCl (Zofran Inj) 4 mg ER BRIDGE PRN IV NAUSEA/VOMITING; Start 04/10/18 at 12:30; Stop 04/11/18 at 12:29 Acetaminophen (Tylenol Tab) 650 mg ER BRIDGE PRN PO .MILD PAIN 1-3 OR TEMP Last administered on 04/10/18at 23:18; Admin Dose 650 MG; Start 04/10/18 at 12:30; Stop 04/11/18 at 12:29 IV Flush (NS 3 ml) 3 ml PER PROTOCOL IV ; Start 04/10/18 at 13:00 Acetaminophen (Tylenol Tab) 650 mg Q6H PRN PO .PAIN 1-3 OR TEMP; Start 04/10/18 at 13:00 Zolpidem Tartrate (Ambien) 5 mg QHS PRN PO .INSOMNIA; Start 04/10/18 at 13:00 Docusate Sodium (Colace) 100 mg Q12H PRN PO .CONSTIPATION; Start 04/10/18 at 13:00 Ceftriaxone Sodium 50 ml @ 100 mls/hr DAILY ONCE IVPB Last administered on 04/11/18at 08:37; Admin Dose 100 MLS/HR; Start 04/11/18 at 09:00; Stop 04/11/18 at 09:29 Azithromycin 250 ml @ 250 mls/hr DAILY ONCE IVPB ; Start 04/11/18 at 09:00; Stop 04/11/18 at 09:59 Famotidine (Pepcid) 20 mg Q24H PO ; Start 04/10/18 at 13:30 Aspirin (Aspirin) 81 mg DAILY PO Last administered on 04/11/18at 08:36; Admin Dose 81 MG; Start 04/11/18 at 09:00 Metoprolol Tartrate (Lopressor) 50 mg BID PO Last administered on 04/11/18at 08:36; Admin Dose 50 MG; Start 04/10/18 at 21:00 Clonidine (Catapres) 0.1 mg Q4H PRN PO ELEVATED BLOOD PRESSURE; Start 04/10/18 at 17:00 MIRTA CANAS MD Apr 11, 2018 08:46
[2018-04-11] MEDS ORDERED: AZITHROMYCIN 500MG/NS (PMX) 250 ML IVPB ONE (09:00)
[2018-04-11] MEDS ORDERED: AMLODIPINE 10 MG TAB PO SCH (09:00)
[2018-04-11] MEDS ORDERED: CEFTRIAXONE 1 GM/50 ML (PMX) 50 ML IVPB ONE (09:00)
[2018-04-11] MEDS ORDERED: POTASSIUM CHLORIDE 100 ML IVPB ONE (09:00)
[2018-04-11] MEDS ORDERED: ALLOPURINOL 100 MG TAB PO SCH (09:00)
--- NOTE | 2018-04-11 09:35 | PN ---
Date/Time of Note Date/Time of Note DATE: 04/11/18 TIME: 09:32 Subjective Patient is alert and oriented. On BiPAP. No complaints of chest pain or shortness of breath. was at the bedside. Objective Vitals Vital Signs Date Temp Pulse Resp B/P (MAP) Pulse Ox O2 O2 Flow FiO2 Time Delivery Rate 04/11/18 79 30 130/86 92 09:00 (101) 04/11/18 Nasal 08:45 Cannula 04/11/18 98.6 08:00 04/11/18 50 05:05 04/10/18 15.0 11:45 Intake and Output 04/10/18 04/10/18 04/11/18 1515:00 23:00 07:00 OutputOutput Total 1150 ml 1000 ml BalanceBalance -1150 ml -1000 ml Neck supple. No JVD Lungs bilateral rhonchi and rales Cardiac regular rate and rhythm no murmurs or gallops Abdomen soft nontender nondistended normoactive bowel sounds Extremities no clubbing cyanosis or edema Neurological nonfocal Results Result Diagram: 04/11/18 04504/11/18 0451 Medications Medications Current Medications Ondansetron HCl (Zofran Inj) 4 mg ER BRIDGE PRN IV NAUSEA/VOMITING; Start 04/10/18 at 12:30; Stop 04/11/18 at 12:29 Acetaminophen (Tylenol Tab) 650 mg ER BRIDGE PRN PO .MILD PAIN 1-3 OR TEMP Last administered on 04/10/18at 23:18; Admin Dose 650 MG; Start 04/10/18 at 12:30; Stop 04/11/18 at 12:29 IV Flush (NS 3 ml) 3 ml PER PROTOCOL IV ; Start 04/10/18 at 13:00 Acetaminophen (Tylenol Tab) 650 mg Q6H PRN PO .PAIN 1-3 OR TEMP; Start 04/10/18 at 13:00 Zolpidem Tartrate (Ambien) 5 mg QHS PRN PO .INSOMNIA; Start 04/10/18 at 13:00 Docusate Sodium (Colace) 100 mg Q12H PRN PO .CONSTIPATION; Start 04/10/18 at 13:00 Ceftriaxone Sodium 50 ml @ 100 mls/hr DAILY ONCE IVPB Last administered on 04/11/18at 08:37; Admin Dose 100 MLS/HR; Start 04/11/18 at 09:00; Stop 04/11/18 at 09:29 Azithromycin 250 ml @ 250 mls/hr DAILY ONCE IVPB ; Start 04/11/18 at 09:00; S top 04/11/18 at 09:59 Famotidine (Pepcid) 20 mg Q24H PO ; Start 04/10/18 at 13:30 Aspirin (Aspirin) 81 mg DAILY PO Last administered on 04/11/18at 08:36; Admin Dose 81 MG; Start 04/11/18 at 09:00 Metoprolol Tartrate (Lopressor) 50 mg BID PO Last administered on 04/11/18at 08:36; Admin Dose 50 MG; Start 04/10/18 at 21:00 Clonidine (Catapres) 0.1 mg Q4H PRN PO ELEVATED BLOOD PRESSURE; Start 04/10/18 at 17:00 Furosemide (Lasix) 20 mg BID DIURETICS IV ; Start 04/11/18 at 09:00 Potassium Chloride 100 ml @ 50 mls/hr ONCE ONCE IVPB ; Start 04/11/18 at 09:00; Stop 04/11/18 at 10:59 VTE Prophylaxis Risk score (from Nsg)>0 risk: 5 SCD applied (from Ns): Yes Lines/Catheters IV Catheter Type: Saline Lock Ko in Place: No Assessment/Plan Assessment/Plan 62-year-old male with bilateral community-acquired pneumonia Acute hypoxemic respiratory failure, on BiPAP Leukemoid reaction Acute kidney injury, slowly improving Hypertension Continue broad-spectrum antibiotics Discontinue Tamiflu Gentle hydration Pulmonary and nephrology follow-up is appreciated DAMARIS SPENCE MD Apr 11, 2018 09:35
[2018-04-11] MEDS: FUROSEMIDE 20 MG INJ IV SCH ×2 (09:55→17:17)
[2018-04-11] MEDS ORDERED: VANCOMYCIN IV PER PHARMACY XX SCH (10:00)
--- NOTE | 2018-04-11 10:00 | CONS ---
Consult Date/Type/Reason Admit Date/Time Apr 10, 2018 at 12:26 Initial Consult Date 04/10/18 Type of Consult Pulmonary Requesting Provider: DAMARIS SPENCE MD Date/Time of Note DATE: 04/11/18 TIME: 09:58 Subjective Patient stable this morning on nasal cannula O2 awake alert with less tachypnea. Chest x-ray shows worsening bilateral infiltrates however. Objective Vital Signs Date Temp Pulse Resp B/P (MAP) Pulse Ox O2 O2 Flow FiO2 Time Delivery Rate 04/11/18 79 30 130/86 92 09:00 (101) 04/11/18 Nasal 08:45 Cannula 04/11/18 98.6 08:00 04/11/18 50 05:05 04/10/18 15.0 11:45 Intake and Output 04/10/18 04/10/18 04/11/18 1515:00 23:00 07:00 OutputOutput Total 1150 ml 1000 ml BalanceBalance -1150 ml -1000 ml Exam GENERAL: Well-nourished well-developed gentleman VITAL SIGNS: per chart NECK: Supple. No JVD or lymphadenopathy. CARDIAC EXAM: S1, S2. No added sounds or murmurs. CHEST: Diminished air entry bilaterally with rales ABDOMEN: Soft, nontender. No guarding or rebound. EXTREMITIES: No cyanosis, clubbing or edema. NEUROLOGIC: Generalized weakness. No focal deficits. Results/Medications Result Diagram: 04/11/18 0451 04/11/18 0451 Results 24 hrs Laboratory Tests Test 04/10/18 11:00 04/10/18 11:02 04/10/18 13:05 04/10/18 15:03 POC Venous 2.3 *H 2.3 *H Lactate White Blood 35.8 #H Count Red Blood Count 4.72 Hemoglobin 14.1 Hematocrit 40.8 L Mean Corpuscular 86.4 Volume Mean Corpuscular 29.9 Hemoglobin Mean Corpuscular 34.6 Hemoglobin Lianet nt Red Cell 14.3 Distribution Width Platelet Count 257 Mean Platelet 10.3 Volume Immature 8.100 H Granulocytes % Neutrophils % Segmented 37 L Neutrophils % (Manual) Band Neutrophils 52 H % (Manual) Lymphocytes % Lymphocytes % 2 L (Manual) Reactive 2 H Lymphocytes % (Manual) Monocytes % Monocytes % 4 (Manual) Eosinophils % Basophils % Metamyelocytes % 3 H (manual) Myelocytes % 1 H (Manual) Nucleated Red 0.2 H Blood Cells % Immature 2.910 H Granulocytes # Neutrophils # Neutrophils # 19.9 H (Manual) Band Neutrophils 18.6 H # Lymphocytes 0.7 L (Manual) Lymphocytes # Reactive 0.7 H Lymphocytes # Monocytes # Monocytes # 1.4 H (Manual) Eosinophils # Basophils # Metamyelocytes # 1.0 H Myelocytes # 0.3 H Nucleated Red Blood Cells # Platelet NORMAL Estimate Polychromasia 1+ Poikilocytosis 1+ Anisocytosis 1+ Macrocytosis 1+ Prothrombin Time 13.3 Prothrombin Time 1.0 Ratio INR 1.00 International Normalized Ratio Activated 35.3 H Partial Thrombop last Time Sodium Level 139 Potassium Level 3.2 L Chloride Level 103 Carbon Dioxide 21 Level Anion Gap 15 H Blood Urea 60 H Nitrogen Creatinine 3.02 H Est Glomerular 21 L Filtrat Rate mL/min Glucose Level 135 Calcium Level 8.9 Total Bilirubin 2.5 H Direct Bilirubin 2.00 H Indirect 0.5 Bilirubin Aspartate Amino 38 Transf (AST/SGOT ) Alanine 26 Aminotransferase (ALT/SGPT) Alkaline 253 H Phosphatase Troponin I < 0.012 Total Protein 7.5 Albumin 3.5 Globulin 4.00 H Albumin/Globulin 0.87 Ratio Urine Color TIARA Urine Clarity CLEAR Urine pH 5.0 Urine Specific 1.012 [place] Urine Ketones NEGATIVE Urine Nitrite NEGATIVE Urine Bilirubin NEGATIVE Urine 2+ H Urobilinogen Urine Leukocyte NEGATIVE Esterase Urine 3 Microscopic RBC Urine 5 Microscopic WBC Urine FEW A Transitional Epithelial Cells Urine 0.0 Eosinophils % Urine Hemoglobin 1+ H Urine Random 85.79 Creatinine Urine Random 32 Sodium Urine 0.78 Protein/Creatini ne Ratio Urine Glucose NEGATIVE Urine Total 67.0 H Protein Test 04/10/18 15:25 04/10/18 16:00 04/11/18 04:51 04/11/18 07:00 Lactic Acid 3.0 *H Level Blood Gas Blood arterial Blood arterial Specimen Source Arterial Blood 04/10/2018 12:29 04/11/2018 7:15: Date Drawn :40 PM 18 AM Arterial Blood 7.393 7.462 H pH (Temp corrected) Arterial Blood 28.2 L 30.8 L pCO2 (Temp correct) Arterial Blood 97.6 72.7 L pO2 (Temp corrected) Arterial Blood 16.8 L 21.5 L HCO3 Arterial Blood -6.6 L -1.3 Base Excess Arterial Blood 96.9 93.8 L Oxygen Saturatio n Prabhu Test ACCEPTAB N/A Arterial Blood Right Radial Right Brachial Gas Puncture Site Arterial 0.3 0.2 Blood Carboxyhem oglobin Arterial Blood 0.2 0.1 Methemoglobin Blood Gas A-a O2 587.2 H 249.2 H Differential Oxyhemoglobin 96.4 93.5 Percent Blood Gas 37.0 37.0 Temperature Blood Gas 16.0 14.0 Respiration Rate Blood Gas Actual 33 31 Respiration Rate Blood Gas MASK - BIPAP MASK - BIPAP Modality FiO2 100.0 50.0 Blood Gas 10 10 Pressure Support Blood Gas 1528/06 IPAP/EPAP Ratio Blood Gas TM TM Notified Whom Blood Gas 04/10/2018 12:36 04/11/2018 7:52: Notified Time :23 PM 01 AM White Blood 47.8 #H Count Red Blood Count 4.28 L Hemoglobin 12.8 L Hematocrit 36.4 L Mean Corpuscular 85.0 Volume Mean Corpuscular 29.9 Hemoglobin Mean Corpuscular 35.2 Hemoglobin Lianet nt Red Cell 13.9 Distribution Width Platelet Count 238 Mean Platelet 10.6 H Volume Immature 6.900 H Granulocytes % Neutrophils % Segmented 61 Neutrophils % (Manual) Band Neutrophils 33 H % (Manual) Lymphocytes % Lymphocytes % 1 L (Manual) Monocytes % Monocytes % 3 (Manual) Eosinophils % Basophils % Myelocytes % 1 H (Manual) Promyelocytes % 1 H (Manual) Nucleated Red 1 H Blood Cells % Immature 3.310 H Granulocytes # Neutrophils # Neutrophils # 36.7 H (Manual) Band Neutrophils 15.7 H # Lymphocytes 0.4 L (Manual) Lymphocytes # Monocytes # Monocytes # 1.4 H (Manual) Eosinophils # Basophils # Myelocytes # 0.4 H Promyelocytes # 0.4 H Nucleated Red Blood Cells # Toxic 1+ Granulation Platelet NORMAL Estimate Anisocytosis 1+ Macrocytosis 1+ Target Cells 1+ Sodium Level 144 Potassium Level 3.1 L Chloride Level 106 Carbon Dioxide 22 Level Anion Gap 16 H Blood Urea 55 H Nitrogen Creatinine 2.65 H Est Glomerular 25 L Filtrat Rate mL/min Glucose Level 125 Hemoglobin A1c 6.1 H Uric Acid 10.0 H Calcium Level 8.6 Creatine Kinase 23 B-Type 1440 H Natriuretic Peptide Medications Current Medications Ondansetron HCl (Zofran Inj) 4 mg ER BRIDGE PRN IV NAUSEA/VOMITING; Start 04/10/18 at 12:30; Stop 04/11/18 at 12:29 Acetaminophen (Tylenol Tab) 650 mg ER BRIDGE PRN PO .MILD PAIN 1-3 OR TEMP Last administered on 04/10/18at 23:18; Admin Dose 650 MG; Start 04/10/18 at 12:30; Stop 04/11/18 at 12:29 IV Flush (NS 3 ml) 3 ml PER PROTOCOL IV ; Start 04/10/18 at 13:00 Acetaminophen (Tylenol Tab) 650 mg Q6H PRN PO .PAIN 1-3 OR TEMP; Start 04/10/18 at 13:00 Zolpidem Tartrate (Ambien) 5 mg QHS PRN PO .INSOMNIA; Start 04/10/18 at 13:00 Docusate Sodium (Colace) 100 mg Q12H PRN PO .CONSTIPATION; Start 04/10/18 at 13:00 Azithromycin 250 ml @ 250 mls/hr DAILY ONCE IVPB ; Start 04/11/18 at 09:00; Stop 04/11/18 at 09:59 Famotidine (Pepcid) 20 mg Q24H PO ; Start 04/10/18 at 13:30 Aspirin (Aspirin) 81 mg DAILY PO Last administered on 04/11/18at 08:36; Admin Dose 81 MG; Start 04/11/18 at 09:00 Metoprolol Tartrate (Lopressor) 50 mg BID PO Last administered on 04/11/18at 08:36; Admin Dose 50 MG; Start 04/10/18 at 21:00 Clonidine (Catapres) 0.1 mg Q4H PRN PO ELEVATED BLOOD PRESSURE; Start 04/10/18 at 17:00 Furosemide (Lasix) 20 mg BID DIURETICS IV Last administered on 04/11/18at 09:55; Admin Dose 20 MG; Start 04/11/18 at 09:00 Potassium Chloride 100 ml @ 50 mls/hr ONCE ONCE IVPB Last administered on 04/11/18at 09:55; Admin Dose 50 MLS/HR; Start 04/11/18 at 09:00; Stop 04/11/18 at 10:59 Vancomycin HCl (Vanco Iv Per Pharmacy) VANCOMYCIN PER PHARMACY PER PROTOCOL XX ; Start 04/11/18 at 10:00; Status UNV Assessment/Plan Hospital Course (Demo Recall) IMPRESSION AND PLAN: 1. Acute hypoxemic respiratory failure likely secondary to community-acquired pneumonia. 2. Possible acute renal failure with mild metabolic acidosis. 3. History of essential hypertension. 4. Remote tobacco history. Plan 1. Broad spectrum antibiotic coverage for community-acquired pneumonia. 2. I would consider empiric Tamiflu for influenza. 3. Volume resuscitation. Trial of steroids possible cryptogenic organizing pneumonia. 4. Renal ultrasound. 5. Renal recommendations 6. Advance diet and transfer to telemetry 7. PT eval cc40 mins CONNIE DE LA CRUZ MD, [facility] Apr 11, 2018 10:00
[2018-04-11] MEDS ORDERED: VANCOMYCIN HCL 1.5 GM in SOD CHLORIDE 0.9% 250 ML IVPB SCH (12:00)
[2018-04-11] MEDS: METHYLPREDNISOLONE 40 MG INJ IV SCH ×3 (12:51→23:47)
[2018-04-11] MEDS: POTASSIUM CHLORIDE (SR) 20 MEQ TAB PO SCH ×2 (12:52→20:40)
[2018-04-11] MEDS: FAMOTIDINE 20 MG TAB PO SCH (12:52)
[2018-04-12] VITALS (8 sets, daily range): BP systolic 129–163; BP diastolic 70–93; PULSE 65–78; RESP 18
[2018-04-12] MEDS: METHYLPREDNISOLONE 40 MG INJ IV SCH ×2 (05:37→11:47)
[2018-04-12] MEDS: ASPIRIN 81 MG TAB PO SCH (08:30)
[2018-04-12] MEDS: METOPROLOL 50 MG TAB PO SCH (08:31)
[2018-04-12] MEDS ORDERED: Vancomycin Iv Per Pharmacy XX (08:59)
[2018-04-12] MEDS ORDERED: AZIT250T PO (08:59)
[2018-04-12] MEDS ORDERED: CEFT1PIG2 IVPB (08:59)
[2018-04-12] MEDS ORDERED: METO-429 PO (08:59)
[2018-04-12] MEDS ORDERED: CEFTRIAXONE 1 GM/50 ML (PMX) 50 ML IVPB SCH (09:00)
--- NOTE | 2018-04-12 09:06 | PDOCDIS ---
Discharge Instructions DIAGNOSIS Discharge Diagnosis 62-year-old male with bilateral community-acquired pneumonia, improving Acute hypoxemic respiratory failure, improving Leukocytosis, improving Acute kidney injury, improving Hypertension 62-year-old male presented with complaint of shortness of breath and cough times several days. He was diagnosed with bilateral community-acquired pneumonia. Initially he was markedly hypoxic. He was transferred to ICU and placed on BiPAP. He was seen in consultation by crisis therapist. Patient was also noted to have acute on chronic kidney injury. His creatinine slowly improved. He was seen in consultation by Dr. De Leon. Patient is now in a stable condition for transfer to [facility]. IV vancomycin, Rocephin, and Zithromax will be continued. Patient will be followed by Dr. De Leon at the other facility. He had bilateral rhonchi on physical exam. The rest of the exam was unremarkable. CONDITION 2 [id number] Patient Condition: [id number] Good HOME CARE INSTRUCTIONS: [id number] Diet Instructions: [id number] DAMARIS Rausch MD Apr 12, 2018 09:06
--- NOTE | 2018-04-12 09:07 | CONS ---
Assessment/Plan Assessment/Plan Assessment/Plan (Daily) 1. acute vs acute on chronic renal failure due to ATN from sepsis 2. Sepsis due to CAP 3. acute hypoxic respiratory failure due to PNA 4. community acquired PNA 5. h/o HTN 6. ? h/o CKD 7. Severe metabolic acidosis due to sepsis and Renal failure 8. Hyperuricemia with uric acid 10 9. Leucocytosis with WBC 47.8 Plan: BUN/Cr 65/2.16, on IV lasix 20mg BID Uric acid 10- will start allopurinol 100mg po daily Renal US unremarkable IV abx for sepsis and PNA, renally dose all abx and monitor electrolytes, WBC 47 ok to transfer will follow up Consultation Date/Type/Reason Admit Date/Time Apr 10, 2018 at 12:26 Initial Consult Date 04/10/18 Type of Consult NEPHROLOGY Requesting Provider: DAMARIS SPENCE MD Date/Time of Note DATE: 04/12/18 TIME: 09:07 Exam/Review of Systems Exam Vitals Vital Signs Date Temp Pulse Resp B/P (MAP) Pulse Ox O2 O2 Flow FiO2 Time Delivery Rate 04/12/18 68 08:23 04/12/18 98.0 18 155/92 93 4.0 08:00 (113) 04/11/18 Nasal 20:35 Cannula 04/11/18 40 07:40 Intake and Output 04/11/18 04/11/18 04/12/18 1515:00 23:00 07:00 IntakeIntake Total 60 ml 500 ml 800 ml OutputOutput Total 1500 ml 740 ml BalanceBalance 60 ml -1000 ml 60 ml Results Result Diagram: 04/12/1851904/12/18 0520 Results 24hrs Laboratory Tests Test 04/12/18 05:20 White Blood Count 34.0 #H Red Blood Count 4.75 Hemoglobin 14.2 Hematocrit 40.0 L Mean Corpuscular Volume 84.2 Mean Corpuscular Hemoglobin 29.9 Mean Corpuscular Hemoglobin Concent 35.5 Red Cell Distribution Width 13.7 Platelet Count 269 Mean Platelet Volume 10.9 H Immature Granulocytes % 9.600 H Neutrophils % Segmented Neutrophils % (Manual) 74 Band Neutrophils % (Manual) 15 H Lymphocytes % Lymphocytes % (Manual) 6 L Monocytes % Monocytes % (Manual) 2 Eosinophils % Basophils % Metamyelocytes % (manual) 1 H Myelocytes % (Manual) 2 H Nucleated Red Blood Cells % 0.1 H Immature Granulocytes # 3.280 H Neutrophils # Neutrophils # (Manual) 26.9 H Band Neutrophils # 5.1 H Lymphocytes (Manual) 2.0 Lymphocytes # Monocytes # Monocytes # (Manual) 0.6 Eosinophils # Basophils # Metamyelocytes # 0.3 H Myelocytes # 0.6 H Nucleated Red Blood Cells # Toxic Granulation 1+ Platelet Estimate NORMAL Giant Platelets 2 H Polychromasia 1+ Anisocytosis 2+ Macrocytosis 2+ Target Cells 1+ Sodium Level 144 Potassium Level 3.5 Chloride Level 104 Carbon Dioxide Level 24 Anion Gap 16 H Blood Urea Nitrogen 65 H Creatinine 2.16 H Est Glomerular Filtrat Rate mL/min 31 L Glucose Level 187 Calcium Level 9.2 Phosphorus Level 5.4 H Magnesium Level 2.2 Medications Medication Current Medications IV Flush (NS 3 ml) 3 ml PER PROTOCOL IV ; Start 04/10/18 at 13:00 Acetaminophen (Tylenol Tab) 650 mg Q6H PRN PO .PAIN 1-3 OR TEMP Last administered on 04/11/18at 21:41; Admin Dose 650 MG; Start 04/10/18 at 13:00 Zolpidem Tartrate (Ambien) 5 mg QHS PRN PO .INSOMNIA Last administered on 04/11/18at 23:53; Admin Dose 5 MG; Start 04/10/18 at 13:00 Docusate Sodium (Colace) 100 mg Q12H PRN PO .CONSTIPATION; Start 04/10/18 at 13:00 Famotidine (Pepcid) 20 mg Q24H PO Last administered on 04/11/18at 12:52; Admin Dose 20 MG; Start 04/10/18 at 13:30 Aspirin (Aspirin) 81 mg DAILY PO Last administered on 04/12/18at 08:30; Admin Dose 81 MG; Start 04/11/18 at 09:00 Metoprolol Tartrate (Lopressor) 50 mg BID PO Last administered on 04/12/18at 08:31; Admin Dose 50 MG; Start 04/10/18 at 21:00 Clonidine (Catapres) 0.1 mg Q4H PRN PO ELEVATED BLOOD PRESSURE; Start 04/10/18 at 17:00 Vancomycin HCl (Vanco Iv Per Pharmacy) VANCOMYCIN PER PHARMACY PER PROTOCOL XX ; Start 04/11/18 at 10:00 Methylprednisolone Sodium Succinate (Solu-Medrol) 40 mg Q6 IV Last administered on 04/12/18at 05:37; Admin Dose 40 MG; Start 04/11/18 at 12:00 Ceftriaxone Sodium 50 ml @ 100 mls/hr DAILY IVPB Last administered on 04/12/18at 08:30; Admin Dose 100 MLS/HR; Start 04/12/18 at 09:00 Azithromycin 250 ml @ 250 mls/hr Q24H IVPB ; Start 04/12/18 at 14:00 Vancomycin HCl 1.25 gm/Sodium Chloride 250 ml @ 83.333 mls/ hr Q36H IVPB ; Start 04/13/18 at 01:00 MIRTA CANAS MD Apr 12, 2018 09:07
[2018-04-12] MEDS: FAMOTIDINE 20 MG TAB PO SCH (13:02)
[2018-04-12] MEDS ORDERED: AZITHROMYCIN 500MG/NS (PMX) 250 ML IVPB SCH (14:00)
--- NOTE | 2018-04-12 14:31 | CONS ---
Consult Date/Type/Reason Admit Date/Time Apr 10, 2018 at 12:26 Initial Consult Date 04/10/18 Type of Consult Pulmonary Requesting Provider: DAMARIS SPENCE MD Date/Time of Note DATE: 04/12/18 TIME: 14:30 Subjective Better, less short of breath. Objective Vital Signs Date Temp Pulse Resp B/P (MAP) Pulse Ox O2 O2 Flow FiO2 Time Delivery Rate 04/12/18 76 12:17 04/12/18 98.0 18 129/70 92 Nasal 11:29 (89) Cannula 04/12/18 5.0 09:18 04/11/18 40 07:40 Intake and Output 04/11/18 04/11/18 04/12/18 1515:00 23:00 07:00 IntakeIntake Total 60 ml 500 ml 800 ml OutputOutput Total 1500 ml 740 ml BalanceBalance 60 ml -1000 ml 60 ml Exam GENERAL: Well-nourished well-developed gentleman VITAL SIGNS: per chart NECK: Supple. No JVD or lymphadenopathy. CARDIAC EXAM: S1, S2. No added sounds or murmurs. CHEST: Diminished air entry bilaterally with rales ABDOMEN: Soft, nontender. No guarding or rebound. EXTREMITIES: No cyanosis, clubbing or edema. NEUROLOGIC: Generalized weakness. No focal deficits. Results/Medications Result Diagram: 04/12/18 0504/12/18 0520 Results 24 hrs Laboratory Tests Test 04/12/18 05:20 White Blood Count 34.0 #H Red Blood Count 4.75 Hemoglobin 14.2 Hematocrit 40.0 L Mean Corpuscular Volume 84.2 Mean Corpuscular Hemoglobin 29.9 Mean Corpuscular Hemoglobin Concent 35.5 Red Cell Distribution Width 13.7 Platelet Count 269 Mean Platelet Volume 10.9 H Immature Granulocytes % 9.600 H Neutrophils % Segmented Neutrophils % (Manual) 74 Band Neutrophils % (Manual) 15 H Lymphocytes % Lymphocytes % (Manual) 6 L Monocytes % Monocytes % (Manual) 2 Eosinophils % Basophils % Metamyelocytes % (manual) 1 H Myelocytes % (Manual) 2 H Nucleated Red Blood Cells % 0.1 H Immature Granulocytes # 3.280 H Neutrophils # Neutrophils # (Manual) 26.9 H Band Neutrophils # 5.1 H Lymphocytes (Manual) 2.0 Lymphocytes # Monocytes # Monocytes # (Manual) 0.6 Eosinophils # Basophils # Metamyelocytes # 0.3 H Myelocytes # 0.6 H Nucleated Red Blood Cells # Toxic Granulation 1+ Platelet Estimate NORMAL Giant Platelets 2 H Polychromasia 1+ Anisocytosis 2+ Macrocytosis 2+ Target Cells 1+ Sodium Level 144 Potassium Level 3.5 Chloride Level 104 Carbon Dioxide Level 24 Anion Gap 16 H Blood Urea Nitrogen 65 H Creatinine 2.16 H Est Glomerular Filtrat Rate mL/min 31 L Glucose Level 187 Calcium Level 9.2 Phosphorus Level 5.4 H Magnesium Level 2.2 Medications Current Medications IV Flush (NS 3 ml) 3 ml PER PROTOCOL IV ; Start 04/10/18 at 13:00 Acetaminophen (Tylenol Tab) 650 mg Q6H PRN PO .PAIN 1-3 OR TEMP Last administe red on 04/11/18 21:41; Admin Dose 650 MG; Start 04/10/18 at 13:00 Zolpidem Tartrate (Ambien) 5 mg QHS PRN PO .INSOMNIA Last administered on 04/11/18 23:53; Admin Dose 5 MG; Start 04/10/18 at 13:00 Docusate Sodium (Colace) 100 mg Q12H PRN PO .CONSTIPATION; Start 04/10/18 at 13:00 Famotidine (Pepcid) 20 mg Q24H PO Last administered on 04/12/18 13:02; Admin Dose 20 MG; Start 04/10/18 at 13:30 Aspirin (Aspirin) 81 mg DAILY PO Last administered on 04/12/18 08:30; Admin Dose 81 MG; Start 04/11/18 at 09:00 Metoprolol Tartrate (Lopressor) 50 mg BID PO Last administered on 04/12/18 08:31; Admin Dose 50 MG; Start 04/10/18 at 21:00 Clonidine (Catapres) 0.1 mg Q4H PRN PO ELEVATED BLOOD PRESSURE; Start 04/10/18 at 17:00 Vancomycin HCl (Vanco Iv Per Pharmacy) VANCOMYCIN PER PHARMACY PER PROTOCOL XX ; Start 04/11/18 at 10:00 Methylprednisolone Sodium Succinate (Solu-Medrol) 40 mg Q6 IV Last administered on 04/12/18at 11:47; Admin Dose 40 MG; Start 04/11/18 at 12:00 Ceftriaxone Sodium 50 ml @ 100 mls/hr DAILY IVPB Last administered on 2/27/19at 08:30; Admin Dose 100 MLS/HR; Start 04/12/18 at 09:00 Azithromycin 250 ml @ 250 mls/hr Q24H IVPB Last administered on 04/12/18at 13:03; Admin Dose 250 MLS/HR; Start 04/12/18 at 14:00 Vancomycin HCl 1.25 gm/Sodium Chloride 250 ml @ 83.333 mls/ hr Q36H IVPB ; Start 04/13/18 at 01:00 Assessment/Plan Hospital Course (Demo Recall) IMPRESSION AND PLAN: 1. Acute hypoxemic respiratory failure likely secondary to community-acquired pneumonia. 2. Possible acute renal failure with mild metabolic acidosis. 3. History of essential hypertension. 4. Remote tobacco history. Plan 1. Broad spectrum antibiotic coverage for community-acquired pneumonia. 2. I would consider empiric Tamiflu for influenza. 3. Volume resuscitation. Trial of steroids possible cryptogenic organizing pneumonia. 4. Renal ultrasound. 5. Renal recommendations 6. Advance diet and transfer to telemetry 7. PT eval transfer to [facility] today. CONNIE DE LA CRUZ MD, FCCP Apr 12, 2018 14:31
[2018-04-13] MEDS ORDERED: VANCOMYCIN HCL 1.25 GM in SOD CHLORIDE 0.9% 250 ML IVPB SCH (01:00)
== END 2018-04-12 15:39 | disposition other institution (70) | DRG 871 ==
LOC: E/R 10:13 → ICU 12:26 → CANRESERV 13:45 → EDBEDREQSVC 14:01 → TEL 04-11 18:53
PROVIDERS: ADMIT Internal Medicine; ATTEND Internal Medicine
PROC: 5A09357 Assistance with Respiratory Ventilation, Less than 24 Consecutive Hours, Continuous Positive Airway Pressure (ICD-10-PCS; principal; 2018-04-10)
PROC: 4A133R1 Monitoring of Arterial Saturation, Peripheral, Percutaneous Approach (ICD-10-PCS; 2018-04-10)
DX: A41.9 Sepsis, unspecified organism (principal); J96.01 Acute respiratory failure with hypoxia; N17.0 Acute kidney failure with tubular necrosis; J18.9 Pneumonia, unspecified organism; E87.2 Acidosis; I12.9 Hypertensive chronic kidney disease with stage 1 through stage 4 chronic kidney disease, or unspecified chronic kidney disease; N18.9 Chronic kidney disease, unspecified; E78.5 Hyperlipidemia, unspecified; E79.0 Hyperuricemia without signs of inflammatory arthritis and tophaceous disease; Z79.82 Long term (current) use of aspirin; Z87.891 Personal history of nicotine dependence
CPT/HCPCS: 36415; 36600; 71045; 71250; 76775; 80048; 80053; 81001; 81003; 82550; 82570; 82803; 83036; 83605; 83735; 83880; 84100; 84300; 84484; 84560; 85025; 85610; 85730; 86021; 87040; 87081; 87086; 87400; 89190; 93005; 93306; 94660; 96374; 97161; J0456; J0696; J1940; J2920; J3370; J3480; J7030; J7050